=== PATIENT | male | born 1950 | race Caucasian/White ===

== ENCOUNTER → 2017-01-30 | Outpatient (CLI) | payer OTHER, MEDICARE ==
[2017-01-30 14:11] LABS: BLOOD UREA NITROGEN 13 mg/dl (7-18); BUN/CREATININE RATIO 14.8 (10-20); CARBON DIOXIDE 25 mmol/L (21-32); CHLORIDE 103 mmol/L (98-107); CREATININE 0.85 mg/dl (0.60-1.40); GLUCOSE 281 mg/dl (70-99); POTASSIUM 3.7 mmol/L (3.5-5.1); SODIUM 137 mmol/L (136-145)
[2017-01-30 14:13] LABS: CALCIUM 8.7 mg/dl (8.5-10.1)
[2017-01-30 14:15] LABS: ESTIMATED AVERAGE GLUCOSE 217 mg/dl; HA1C FLAG Normal (Normal)
[2017-01-30 14:16] LABS: FERRITIN 10.5 ng/ml (8.0-388.0); TOTAL IRON BINDING CAPACITY 465 mcg/dl (250-450)
--- NOTE | 2017-02-04 10:20 | CODING QUERY MEDICAL NECESSITY ---
SUPPORTING DIAGNOSIS NEEDED A supporting diagnosis is required for the test/procedure performed on this patient in order for us to be reimbursed by the patient's insurance. Please provide a supporting diagnosis for the following test/procedure listed below next to the test name along with your signature. *If there is no additional diagnosis for this patient that would support the following test/procedure please document that below next to the test/procedure. Test(s)/Procedure(s) that require a supporting diagnosis: DOS 01/30 * PSA DIAGNOSIS: Provider Signature: Date: Thank you Erin Sykes [facility] Information Management Once completed, please kindly fax back to [phone] For questions please call [phone]
== END | disposition home or self-care (01) ==
LOC: C.LABBC 09:50
PROVIDERS: ATTEND Family Medicine
DX: D64.9 Anemia, unspecified (principal); I10 Essential (primary) hypertension; R39.9 Unspecified symptoms and signs involving the genitourinary system; Z11.59 Encounter for screening for other viral diseases; E11.8 Type 2 diabetes mellitus with unspecified complications; Z12.5 Encounter for screening for malignant neoplasm of prostate

== ENCOUNTER 2018-12-06 02:16 | Inpatient (IN) ==
[2018-12-06] MEDS ORDERED: HYDROmorphone INJ 1 MG/ML SYRINGE IV PRN (03:38)
[2018-12-06] MEDS ORDERED: METOCLOPRAMIDE HCL INJ 5 MG/ML 2 ML VIAL IV STA (03:38)
[2018-12-06] MEDS ORDERED: SODIUM CHLORIDE 0.9% 500 ML IV SCH (03:45)
--- NOTE | 2018-12-06 05:04 | Emergency Department Note ---
History of Present Illness General Chief complaint: Illness Time Seen by Provider: 12/06/18 03:29 Source: patient, family, RN notes reviewed and old records reviewed Mode of arrival: ambulatory Limitations: no limitations History of Present Illness Onset (ago): hour(s) 6 Location: abdomen Radiation: back Pain Consistency: + constant Maximum Pain Intensity: 4 Quality: + aching Relieved By: + none Exacerbated By: + none Associated symptoms: + denies other symptoms Treatments prior to arrival: none This is a 68-year-old male who presents emergency department complaining of right upper quadrant abdominal pain that started earlier this evening. The patient reports he came down from [place] and began having pain. He reports similar stomach pain that started earlier in the week but it was not as severe as this. Patient has not taken anything for the pain. He is currently complaining of nausea. He still has his appendix and his gallbladder. He denies any fevers at home. He denies any chest pain. Home Medications Home Medications Medication Instructions Recorded Confirmed Type amlodipine 10 mg PO DAILY 12/06/18 12/06/18 History aspirin 81 mg PO DAILY 12/06/18 12/06/18 History cyanocobalamin (vitamin B-12) 1,000 mcg PO DAILY 12/06/18 12/06/18 History [Vitamin B-12] exenatide microspheres [Bydureon 2 mg SUBCUT WK 12/06/18 12/06/18 History BCise] glimepiride 2 mg PO BID 12/06/18 12/06/18 History hydrochlorothiazide 25 mg PO DAILY 12/06/18 12/06/18 History insulin detemir U-100 [Levemir 150 unit SUBCUT DAILY 12/06/18 12/06/18 History FlexTouch U-100 Insuln] losartan 100 mg PO DAILY 12/06/18 12/06/18 History metformin 1,000 mg PO Q12 12/06/18 12/06/18 History omeprazole magnesium [Prilosec OTC] 20 mg PO DAILY 12/06/18 12/06/18 History pravastatin 40 mg PO HS 12/06/18 12/06/18 History Allergies Allergy/AdvReac Type Severity Reaction Status Date / Time No Known Allergies Allergy Unverified 12/06/18 06:23 Past Med/Surg History Social History Feels Safe at Home: Yes Smoking Status: Never smoker Review of Systems A total of 10 systems reviewed and were otherwise negative Physical Exam Vital Signs Vital Signs - 24 hr 12/06/18 02:24 12/06/18 03:00 12/06/18 04:00 Temperature 36.8 C Temperature Source Oral Sepsis Recent Fever Within 48 Hours No Sepsis Action Taken by Nursing No Action Required Pulse Rate 123 H Pulse Rate [Apical] Pulse Rate [Right Finger] 113 H 101 H Pulse Rhythm Pulse Rhythm [Apical] Pulse Rhythm [Right Finger] Regular Regular Pulse Strength [Right Finger] Normal Normal Respiratory Rate 18 16 16 Respiratory Effort / Characteristics Non-Labored Spontaneous Non-Labored Non-Labored Respiratory Depth Normal Normal Normal Respiratory Pattern Regular Regular Blood Pressure 134/92 Blood Pressure [Left Arm] Blood Pressure Mean 106 Blood Pressure Mean [Left Arm] Blood Pressure Position [Left Arm] Pulse Oximetry 96 95 96 Oxygen Delivery Method Room Air Room Air Room Air 12/06/18 04:20 12/06/18 05:38 12/06/18 07:00 Temperature Temperature Source Sepsis Recent Fever Within 48 Hours Sepsis Action Taken by Nursing Pulse Rate 108 H Pulse Rate [Apical] Pulse Rate [Right Finger] 104 H 110 H Pulse Rhythm Regular Pulse Rhythm [Apical] Pulse Rhythm [Right Finger] Regular Regular Pulse Strength [Right Finger] Normal Respiratory Rate 16 12 19 Respiratory Effort / Characteristics Non-Labored Non-Labored Respiratory Depth Normal Normal Respiratory Pattern Regular Regular Blood Pressure Blood Pressure [Left Arm] 143/92 H 106/78 Blood Pressure Mean Blood Pressure Mean [Left Arm] 109 87 Blood Pressure Position [Left Arm] Lying Sitting Pulse Oximetry 94 99 91 Oxygen Delivery Method Room Air Room Air Room Air 12/06/18 07:42 Temperature Temperature Source Sepsis Recent Fever Within 48 Hours Sepsis Action Taken by Nursing Pulse Rate Pulse Rate [Apical] 111 H Pulse Rate [Right Finger] Pulse Rhythm Pulse Rhythm [Apical] Regular Pulse Rhythm [Right Finger] Pulse Strength [Right Finger] Respiratory Rate 19 Respiratory Effort / Characteristics Non-Labored Respiratory Depth Normal Respiratory Pattern Regular Blood Pressure Blood Pressure [Left Arm] 105/81 Blood Pressure Mean Blood Pressure Mean [Left Arm] 89 Blood Pressure Position [Left Arm] Sitting Pulse Oximetry 91 Oxygen Delivery Method Room Air GENERAL: Patient is a healthy-appearing well-nourished male uncomfortable in appearance HEAD: Normocephalic atraumatic EYES: Ocular movements intact pupils equal and react to light OROPHARYNX mucous membranes are moist no exudates present no erythema or edema present NECK: Supple no nuchal rigidity CHEST: Good equal expansion LUNGS: Clear and equal to auscultation CARDIAC: Normal S1 and S2 ABDOMEN: Soft, Tender RUQ + guarding BACK: No CVA tenderness EXTREMITIES: No pain upon palpation normal muscle strength in all groups no clubbing cyanosis or edema NEURO: Patient is following commands is answering questions appropriately. Alert and oriented x3 Cranial Nerves 2-12 grossly intact Course Administered Medications Hydromorphone HCl (Dilaudid) 1 mg IV Q15M PRN PRN Reason: Pain Stop: 12/20/18 03:37 Last Admin: 12/06/18 04:19 Dose: 1 mg Ioversol (Optiray 320 100ml) 94 ml IV ONCE PRN PRN Reason: Interaction Checking Stop: 12/10/18 05:21 Last Admin: 12/06/18 05:23 Dose: 94 ml Discontinued Medications Albuterol (Ventolin 0.083% 2.5mg/3ml) 2.5 mg NEB NOW STA Stop: 12/06/18 05:28 Last Admin: 12/06/18 05:33 Dose: 2.5 mg Sodium Chloride (Nss) 500 mls @ 999 mls/hr IV .Q31M CHIP Stop: 12/06/18 04:15 Last Infusion: 12/06/18 05:39 Dose: Admin: 12/06/18 04:22 Dose: 999 mls/hr Cefoxitin Sodium (Mefoxin) 2,000 mg in 60 mls @ 100 mls/hr IV NOW STA Stop: 12/06/18 06:19 Last Admin: 12/06/18 07:43 Dose: 100 mls/hr Metoclopramide HCl (Reglan) 10 mg IV NOW STA Stop: 12/06/18 03:39 Last Admin: 12/06/18 04:01 Dose: 10 mg Ondansetron HCl (Zofran) 4 mg IV NOW STA Stop: 12/06/18 05:28 Last Admin: 12/06/18 05:33 Dose: 4 mg Medical Decision Making Medical Records Attestation: I reviewed the patient's medical records. Home Medications Current Medication List: was personally reviewed by me Laboratory Data Attestation: I reviewed the patient's lab results. Result diagrams: 12/06/18 02:25 12/06/18 02:25 Lab Results 12/06/18 12/06/18 12/06/18 Range/Units 02:25 02:25 06:12 WBC 22.51 H (4.8-10.8) K/uL RBC 5.69 (4.7-6.1) M/uL Hgb 12.3 L (14.0-18.0) g/dL Hct 40.8 L (42-52) % MCV 71.7 L (80-100) fL MCH 21.6 L (25-34) pg MCHC 30.1 L (32-36) g/dL RDW Std Deviation 44.4 (36.4-46.3) fL RDW Coeff of [place] 17.1 H (11.5-14.5) % Plt Count 453 H (130-400) K/uL MPV 9.6 (7.4-10.4) fL Immature Gran % (Auto) 0.3 % Neut % (Auto) 88.1 % Lymph % (Auto) 4.6 % [place] % (Auto) 6.0 % Eos % (Auto) 0.9 % Baso % (Auto) 0.1 % Immature Gran # (Auto) 0.07 H (0.00-0.02) K/uL Neut # (Auto) 19.81 H (1.4-6.5) K/uL Lymph # (Auto) 1.04 L (1.2-3.4) K/uL [place] # (Auto) 1.36 H (0.11-0.59) K/uL Eos # (Auto) 0.21 (0-0.5) K/uL Baso # (Auto) 0.02 (0-0.2) K/uL RBC Morphology Unremarkable Sodium 135 L (136-145) mmol/L Potassium 3.8 (3.5-5.1) mmol/L Chloride 102 (98-107) mmol/L Carbon Dioxide 20 L (21-32) mmol/L Anion Gap 13.0 H (3-11) BUN 22 H (7-18) mg/dl Creatinine 1.41 H (0.6-1.4) mg/dl Est Cr Clr Drug Dosing 58.8 ml/min Est GFR ( Amer) 58.9 Est GFR (Non-Af Amer) 50.8 BUN/Creatinine Ratio 15.9 (10-20) Glucose 312 H (70-99) mg/dl Calcium 8.4 L (8.5-10.1) mg/dl Total Bilirubin 0.5 (0.2-1) mg/dl AST 37 (15-37) U/L ALT 68 (12-78) U/L Alkaline Phosphatase 101 (45-117) U/L Total Creatine Kinase 98 (39-308) U/L CK-MB (CK-2) 1.6 (0.5-3.6) ng/ml CK/CKMB % Calc 1.6 (0-3.0) Troponin I < 0.015 (0-0.045) ng/ml Total Protein 8.0 (6.4-8.2) gm/dl Albumin 3.5 (3.4-5.0) gm/dl Globulin 4.5 H (2.5-4.0) gm/dl Albumin/Globulin Ratio 0.8 L (0.9-2) Lipase 207 (73-393) U/L Beta-Hydroxybutyric Acd 3.92 H (0.2-2.81) mg/dl Urine Color Yellow Urine Appearance Clear (Clear) Urine pH 5.0 (4.5-7.5) Ur Specific [place] 1.033 H (1.000-1.030) Urine Protein 1+ H (Negative) Urine Glucose (UA) 3+ H (Negative) Urine Ketones Trace H (Negative) Urine Blood Negative (Negative) Urine Nitrite Negative (Negative) Urine Bilirubin Negative (Negative) Urine Urobilinogen Negative (Negative) Ur Leukocyte Esterase Negative (Negative) Urine WBC (Auto) 1-5 (0-5) /hpf Urine RBC (Auto) 0-4 (0-4) /hpf U Hyaline Cast (Auto) 5-10 H (0-5) /lpf U Epithel Cells (Auto) 10-20 H (0-5) /lpf Urine Bacteria (Auto) Negative (Negative) WBC Casts 1-5 H (0) /lpf Urine Mucus Present H (None Prsent) Imaging Data Attestation: I personally reviewed and interpreted this imaging study as follows : My Impression: 1 view of the chest was interpreted by me shows no evidence of pneumonia congestion or pneumothorax. Radiologist's Impression: US abdomen limited CLINICAL HISTORY: 68 years-old Male presenting with Pt c/o RUQ abd pain. TECHNIQUE: Real-time grayscale and limited color Doppler ultrasound imaging of the abdomen limited to the right upper quadrant was performed. COMPARISON: CT from earlier today. FINDINGS: Pancreas: Largely obscured due to overlying bowel gas. Liver: Markedly hyperechogenic parenchyma with obscuration of the right hemidiaphragm, likely indicating marked hepatic steatosis. The liver measures 22.3 cm in maximal sagittal dimension. No sonographic evidence of hepatic mass. Main portal vein patent with normal directional flow. Biliary: No intrahepatic biliary ductal dilatation. Common bile duct measures up to 5 mm in diameter. Gallbladder: Gallbladder sludge. Few gallstones may also be present. No evidence of gallbladder wall thickening, gallbladder distention, or pericholecystic fluid or inflammatory change. Sonographic Gordon's sign negative. Right kidney: Normal in appearance without evidence of hydronephrosis. Ascites: None. Other: None. IMPRESSION: 1. Severe hepatic steatosis and hepatomegaly. Correlate with liver function tests to exclude steatohepatitis as a cause for abdominal pain. 2. Cholelithiasis and gallbladder sludge without evidence of cholecystitis. Electronically signed by: Kashif Pak M.D. 12/06/2018 6:56 AM Dictated: 12/06/18653 Transcribed: 12/06/18653 CT abdomen pelvis with contrast: Impression: Exam is degraded by patient motion. Hiatal hernia with the breeze in the esophagus as well as mild soft GL wall thickening likely representing gastroesophageal reflux with esophagitis. 13 mm nodular opacity in the left lower lobe. Recommend correlation with prior thoracic imaging if available. Alternatively: Nonemergent chest CT should be performed. Hepatic steatosis. Subtle hyperdensity in the gallbladder may represent sludge or stones. Subcentimeter hypodensities in the kidneys are too small to characterize. Left renal cyst measuring 10.9 x 9.8 cm. Enlarged prostate gland. No evidence of small bowel obstruction or acute appendicitis. ECG Data Attestation: I personally reviewed and interpreted this ECG as follows: Indication: abdominal pain Rate (beats per minute): 109 Rhythm: sinus tachycardia Findings: no ST depression and no ST elevation Comparison ECG Date: no prior available Blood Pressure Blood Pressure Disposition: elevated BP felt to be situational MDM Narrative This is a 68-year-old male who presents emergency department complaining of right upper quadrant abdominal pain. Due to the nature of the patient's pain he was sent for a CAT scan of the abdomen and pelvis. The patient was found to have grossly elevated white blood cell count of 22,000. His EKG does not show any evidence of ischemia. The patient was given Dilaudid as well as Reglan and a normal saline bolus here in the emergency department. Repeat examination revealed improvement in the patient's symptoms. The patient was sent for an ultrasound of his abdomen as a CAT scan does not show any evidence of acute cholecystitis. I suspect that the patient was suffering from cholecystitis with sludge and stone present. He does have a large elevation in his white blood cell count. Based on all these findings I will discuss the case with the hospital service. Impression & Plan Abdominal pain, Hypoxia Discharge Plan Visit Data Chief Complaint: Illness ED Provider: Rush Ng Discharge Problem: Abdominal pain, Hypoxia Forms Stand Alone Forms: [facility] Prescriptions Prescriptions: No Action pravastatin 40 mg tablet 40 mg PO HS RF: 0 aspirin 81 mg Tablet,Delayed Release (Dr/Ec) 81 mg PO DAILY RF: 0 glimepiride 2 mg tablet 2 mg PO BID RF: 0 amlodipine 10 mg tablet 10 mg PO DAILY RF: 0 metformin 1,000 mg tablet 1,000 mg PO Q12 RF: 0 hydrochlorothiazide 25 mg tablet 25 mg PO DAILY RF: 0 losartan 100 mg tablet 100 mg PO DAILY RF: 0 insulin detemir U-100 [Levemir FlexTouch U-100 Insuln] 100 unit/mL (3 mL) insulin pen 150 unit subcut DAILY RF: 0 exenatide microspheres [Bydureon BCise] 2 mg/0.85 mL auto-injector 2 mg subcut WK RF: 0 cyanocobalamin (vitamin B-12) [Vitamin B-12] 1,000 mcg Tablet 1,000 mcg PO DAILY RF: 0 omeprazole magnesium [Prilosec OTC] 20 mg Tablet,Delayed Release (Dr/Ec) 20 mg PO DAILY RF: 0
[2018-12-06] MEDS ORDERED: IOVERSOL 100ml IV PRN (05:22)
[2018-12-06] MEDS ORDERED: ALBUTEROL 0.083% NEBU SOLN 3 ML VIAL NEB STA ×2 (05:27→07:43)
[2018-12-06] MEDS ORDERED: ONDANSETRON INJ 2 MG/ML 2 ML VIAL IV STA (05:27)
[2018-12-06] MEDS ORDERED: cefOXitin 2,000 MG/60 ML BAG IV STA (05:44)
--- NOTE | 2018-12-06 06:57 | Ultrasound Report ---
US abdomen limited CLINICAL HISTORY: 68 years-old Male presenting with Pt c/o RUQ abd pain. TECHNIQUE: Real-time grayscale and limited color Doppler ultrasound imaging of the abdomen limited to the right upper quadrant was performed. COMPARISON: CT from earlier today. FINDINGS: Pancreas: Largely obscured due to overlying bowel gas. Liver: Markedly hyperechogenic parenchyma with obscuration of the right hemidiaphragm, likely indicat ing marked hepatic steatosis. The liver measures 22.3 cm in maximal sagittal dimension. No sonographi c evidence of hepatic mass. Main portal vein patent with normal directional flow. Biliary: No intrahepatic biliary ductal dilatation. Common bile duct measures up to 5 mm in diameter. Gallbladder: Gallbladder sludge. Few gallstones may also be present. No evidence of gallbladder wall thickening, gallbladder distention, or pericholecystic fluid or inflammatory change. Sonographic Murp hy's sign negative. Right kidney: Normal in appearance without evidence of hydronephrosis. Ascites: None. Other: None. IMPRESSION: 1. Severe hepatic steatosis and hepatomegaly. Correlate with liver function tests to exclude steatoh epatitis as a cause for abdominal pain. 2. Cholelithiasis and gallbladder sludge without evidence of cholecystitis. Electronically signed by: Kashif Pak M.D. 12/06/2018 6:56 AM
[2018-12-06] MEDS ORDERED: LEVOFLOXACIN/D5W 750 MG/150 ML BAG IV STA (07:43)
--- NOTE | 2018-12-06 07:47 | History & Physical Report ---
Date of Service December 06, 2018 Assessment & Plan (1) Nausea & vomiting: Patient had Reiger's at home with a concomitant nausea vomiting and diarrhea. He may have a viral gastroenteritis. Emergency room physician was concerned about cholecystitis however ultrasound and is without suggestion of it and LFTs are normal. He is covered prophylactically with antibiotics because he had a aspiration episode in the CAT scanner. We will follow him clinically with including blood cultures and if diarrhea persists we will employ screening for bacterial colitis (2) Diabetes: Diabetes is significantly out of control. We will hold his multiple home medications including exenatide glimepiride metformin and insulin you put him on an insulin drip right now and hydrate him with normal saline (3) Hypertension: Patient typically takes amlodipine losartan and hydrochlorothiazide for blood pressure control will maintain the amlodipine and losartan but hold the hydrochlorothiazide in the face that we are hydrating the patient right now (4) GERD (gastroesophageal reflux disease): Patient will continue his omeprazole (5) DVT prophylaxis: Heparin will be used for DVT prevention History of Present Illness Primary Care Provider: Allie Rosales MD Patient presents to the ER after having Rigor's at home he then had some vomiting in the CAT scanner with some transient hypoxia which is not recorded in the chart suffers from Parker in the past history and is a diabetic his diabetes has been difficult to control at home of late. Patient did have some diarrhea at home along with the nausea and vomiting. In the emergency department he is leukocytosis he is an ultrasound of his gallbladder showing sludge but no evidence of acute cholecystitis pending CT scan of his abdomen pelvis and a chest x-ray without infiltrate. He has high glucose and a high abnormal beta hydroxybutyric acid normal LFTs normal renal function Allergies Allergy/AdvReac Type Severity Reaction Status Date / Time No Known Allergies Allergy Unverified 12/06/18 06:23 Home Medications Home Medications Medication Instructions Recorded Confirmed Type amlodipine 10 mg PO DAILY 12/06/18 12/06/18 History aspirin 81 mg PO DAILY 12/06/18 12/06/18 History cyanocobalamin (vitamin B-12) 1,000 mcg PO DAILY 12/06/18 12/06/18 History [Vitamin B-12] exenatide microspheres [Bydureon 2 mg SUBCUT WK 12/06/18 12/06/18 History BCise] glimepiride 2 mg PO BID 12/06/18 12/06/18 History hydrochlorothiazide 25 mg PO DAILY 12/06/18 12/06/18 History insulin detemir U-100 [Levemir 150 unit SUBCUT DAILY 12/06/18 12/06/18 History FlexTouch U-100 Insuln] losartan 100 mg PO DAILY 12/06/18 12/06/18 History metformin 1,000 mg PO Q12 12/06/18 12/06/18 History omeprazole magnesium [Prilosec OTC] 20 mg PO DAILY 12/06/18 12/06/18 History pravastatin 40 mg PO HS 12/06/18 12/06/18 History Past Med/Surg History Medical History Amebic hepatitis Diabetes Dyslipidemia GERD (gastroesophageal reflux disease) Hypertension Obesity Family History Unknown Diabetes Social History Feels Safe at Home: Yes Smoking Status: Never smoker Review of Systems ROS: Patient was in significant distress at home is much improved now No double vision blurry vision No problems with speech or swallowing No palpitations, chest pain or pressure No Wheezing or breathing issues Diffuse abdominal pain with nausea vomiting and diarrhea changes No burning urine urine frequency or changes in color No focal joint pain or muscle pain No skin rashes or oral lesions No unusual bruising or bleeding No focused back pain or numbness or loss of strength No changes in memory or confusion Physical Exam 2 Vital Signs (Past 24 Hours): Last Vital Signs Temp 36.8 C 12/06/18 02:24 Pulse 111 H 12/06/18 07:42 Resp 19 12/06/18 07:42 BP 105/81 12/06/18 07:42 91 12/06/18 07:42 the patient appeared well nourished and normally developed he is morbidly obese. Vital signs as documented. Head exam is unremarkable. normocephalic, atraumatic Neck is without jugular venous distension, thyromegaly, or lymphademopathy Lungs are clear to auscultation and percussion. Cardiac exam reveals Rhythm is regular. First and second heart sounds normal. Abdominal exam reveals nontender ventral abdominal hernia, generally soft and nontender to exam normal bowel sounds, no masses, no organomegaly Extremities are nonedematous and both pedal pulses are present Neurologic exam is A&Ox3, no focal deficits, strength is equal bilateral Psychologically seems neither anxious or depressed Skin is warm Dry without bruises or lesions Pplse Ox Results & Data Diagnostic Findings liver us IMPRESSION: 1. Severe hepatic steatosis and hepatomegaly. Correlate with liver function tests to exclude steatohepatitis as a cause for abdominal pain. 2. Cholelithiasis and gallbladder sludge without evidence of cholecystitis.
--- NOTE | 2018-12-06 08:17 | CT Scan Report ---
ADDENDUM Summary of Fleischner Society 2017 Recommendations (H Alida et al. Guidelines for management of i ncidental pulmonary nodules detected on CT images: From the Fleischner Society 2017. Radiology 2017; 284: 228-243.) SOLID NODULES Single nodule; size < 6 mm * Low risk patients: No routine follow-up * High risk patients: Optional CT at 12 months Single nodule; size 6-8 mm * Low risk patients: CT at 6-12 months, then consider CT at 18-24 months * High risk patients: CT at 6-12 months, then at 18-24 months Single nodule; size > 8 mm * Either low or high risk patients: Considered CT at 3 months, PET/CT, or tissue sampling Multiple nodules; size < 6 mm * Low risk patients: No routine follow up * High risk patients: Optional CT at 12 months Multiple nodules; size 6-8 mm * Low risk patients: CT at 3-6 months, then consider CT at 18-24 months * High risk patients: CT at 3-6 months, then at 18-24 months Multiple nodules; size > 8 mm * Low risk patients: CT at 3-6 months, then consider at 18-24 months * High risk patients: CT at 3-6 months, then at 18-24 months SUBSOLID NODULES Single ground-glass nodule * Nodule size < 6 mm: No routine follow-up * Nodule size > or = 6 mm: CT at 6-12 months to confirm persistence, then CT every 2 years until 5 y ears Single part-solid nodule * Nodule size < 6 mm: No routine follow-up * Nodules size > or = 6 mm: CT at 3-6 months to confirm persistence. If unchanged and solid componen t remains < 6 mm, annual CT should be performed for 5 years Multiple nodules * Nodule size < 6 mm: CT at 3-6 months. If stable, consider CT at 2 and 4 years. * Nodules size > or = 6 mm: CT at 3-6 months. Subsequent management based on the most suspicious nod ule(s) NOTE: 1) These guidelines apply to incidental nodules. These guidelines do NOT apply to patients younger th an 35 years, immunocompromised patients, or patients with cancer. 2) Risk categories: * Low risk patients: Minimal or absent history of smoking and/or other known risk factors * High risk patients: History of smoking, exposure to other carcinogens, emphysema, fibrosis, upper lobe location, family history of lung cancer, etc. 3) If a nodule up to 8 mm is partly solid or is ground glass, further follow-up is required after 24 months to exclude possible slow growing adenocarcinoma. Electronically signed by: Kashif Pak M.D. 12/06/2018 8:[address] abd pelvis IV con only CLINICAL HISTORY: 68 years-old Male presenting with Pt c/o RUQ abd pain. TECHNIQUE: Multidetector CT of the abdomen and pelvis was performed after the administration of intra venous contrast. IV contrast: 94 mL of Optiray 320. One or more dose lowering techniques were used co nsistent with the principles of ALARA (as low as reasonably achievable), including automatic exposure control, mA or kV adjustment to individual patient size, and/or use of iterative reconstruction. COMPARISON: None. CT DOSE (mGy.cm): The estimated cumulative dose is 1824.26 mGy.cm. FINDINGS: German Tutor topogram: Unremarkable. Motion artifact mildly degrades image quality. This slightly negatively affects diagnostic accuracy t he exam. Lung bases: Normal heart size. Coronary artery calcification. No pericardial or pleural effusion. Res piratory motion artifact degrades violation of the lung bases. Solid peripheral 13 mm nodule in the p osterior basal left lower lobe (series 3 image 90). Liver: Normal morphology. Density suggestive of hepatic steatosis. Well-defined hypodensity in the he patic dome likely hepatic cyst or hamartoma. Additional more vague hypodensity side more inferiorly ( series 3 image 101), indeterminate though possibly hemangioma or peribiliary cystic change. Patent he patic vasculature. Biliary: No intrahepatic or extrahepatic biliary ductal dilatation. Gallbladder contains gallstones o r sludge. Pancreas: Mild parenchymal atrophy. Spleen: Normal. Adrenal glands: Normal. Kidneys and ureters: Multiple small right renal cysts. Dominant exophytic left renal cyst measuring o cindy 13 cm in diameter with a thin septation and thin septal calcification (Bosniak 2). Smaller simila r-appearing cyst measuring approximate 10 cm at the lower pole the left kidney (sees Bosniak 2). No n ephrolithiasis or hydronephrosis. Ureters nondistended. Bladder: Normal. Pelvic organs: Prostate enlargement likely secondary to benign prostatic hyperplasia. Bowel: The appendix is mildly dilated measuring 7-8 mm though measurement is negatively affected by m otion artifact. The appendix is otherwise grossly normal with no periappendiceal fat infiltration. Ga s is noted at the appendiceal tip. No bowel obstruction. Small hiatal hernia. The distal esophagus is dilated with gas and debris. Mild circumferential wall thickening. Peritoneal cavity: No free fluid or intraperitoneal gas. Lymph nodes: No enlarged lymph nodes in the abdomen or pelvis. Vasculature: Atherosclerosis of the normal caliber abdominal aorta. IVC patent. Abdominal wall: Fat-containing bilateral inguinal hernias. Diastases of the abdominis rectus. Infiltr ation of the subcutaneous tissue in the anterior abdominal wall likely from of medication injections. Musculoskeletal: Degenerative changes of the spine. IMPRESSION: 1. Motion artifact degrades evaluation attending image quality negatively affecting diagnostic accur acy of the exam. 2. Gallbladder sludge or gallstones. No evidence of cholecystitis. 3. No convincing evidence of appendicitis. 4. Hiatal hernia with mild circumferential esophageal wall thickening and a dilated esophagus contai brien gas and debris. This may suggest reflux and esophagitis. 5. Hepatic steatosis. Correlate with liver function tests to exclude steatohepatitis as a cause for abdominal pain. 6. 13 mm solid left lower lobe pulmonary nodule. Follow-up per Fleischner Society 2017 recommendatio ns below. Electronically signed by: Kashif Pak M.D. 12/06/2018 8:16 AM
[2018-12-06] MEDS ORDERED: HEPARIN SOD (PORCINE) 1000 UNIT/ML 10 ML VIAL ONE (08:56)
[2018-12-06] MEDS ORDERED: ONDANSETRON INJ 2 MG/ML 2 ML VIAL IV PRN (09:51)
[2018-12-06] MEDS ORDERED: MODERATE STRESS LEVEL ONE (09:51)
[2018-12-06] MEDS ORDERED: DKA GOAL RANGE 150-250 mg/dl ONE (09:51)
[2018-12-06] MEDS ORDERED: DC ALL PREVIOUSLY ORDERED DIABETES MEDS ONE (09:51)
[2018-12-06] MEDS ORDERED: ACETAMINOPHEN 325 MG TAB PO PRN (09:51)
[2018-12-06] MEDS ORDERED: PIPERACILL/TAZOBAC CONSULT ACTIVE PRN (09:51)
[2018-12-06] MEDS ORDERED: MoRPHine SULFATE 4 MG/ML 1 ML CARP\\VIAL IV PRN (09:51)
--- NOTE | 2018-12-06 10:58 | XRay Report ---
XR chest 1V portable CLINICAL HISTORY: 68 years-old Male presenting with Chest Pain. TECHNIQUE: Portable upright AP view of the chest was obtained. COMPARISON: None. FINDINGS: Cardiac silhouette mildly enlarged. Elevation of the right hemidiaphragm. No focal opacity. No large effusion or pneumothorax. Degenerative changes of the thoracic spine. Upper abdomen normal. IMPRESSION: 1. Borderline cardiomegaly. Otherwise no acute pulmonary disease. Electronically signed by: Kashif aPk M.D. 12/06/2018 10:56 AM
[2018-12-06] MEDS ORDERED: INSULIN HUMAN REGULAR IV BOLUS 3 UNITS in SYRINGE 0 ML IV ONE (11:00)
[2018-12-06] MEDS ORDERED: INSULIN REGULAR 250 UNITS in SODIUM CHLORIDE 0.9% 247.5 ML IV SCH (11:00)
[2018-12-06] MEDS: ASPIRIN 81 MG ECTAB PO SCH (11:22)
[2018-12-06] MEDS: LOSARTAN POTASSIUM 50 MG TAB PO SCH (11:22)
[2018-12-06] MEDS: SODIUM CHLORIDE 0.9% 1000ML 1,000 ML IV SCH ×2 (11:23→21:01)
[2018-12-06] MEDS: AMLODIPINE BESYLATE 5 MG TAB PO SCH (11:23)
[2018-12-06] MEDS: HEPARIN SOD 5,000 UNIT/0.5 ML VIAL SQ SCH ×2 (11:24→21:02)
[2018-12-06] MEDS ORDERED: PIPERACILLIN/TAZOBACTAM 4.5 GM/120 ML BAG IV ONE (12:00)
[2018-12-06] MEDS: INSULIN ASPART 100 UNITS/ML 3 ML PEN SC SCH ×3 (12:17→22:57)
[2018-12-06] MEDS: PANTOprazole 40 MG TAB PO SCH (12:17)
[2018-12-06] MEDS ORDERED: INFLUENZA VACCINE HIGH DOSE 65+ 0.5 ML SYR IM ONE (14:45)
[2018-12-06] MEDS ORDERED: INFLUENZA ADMINISTRATION CHARGE ONE (14:45)
[2018-12-06] MEDS: PIPERACILLIN/TAZOBACTAM 4.5 GM in DEXTROSE 5% 100 ML IV SCH (17:55)
[2018-12-06] MEDS ORDERED: PHARMACY GLYCEMIC MGMT CONSULT PRN (18:38)
[2018-12-06] MEDS ORDERED: INSULIN DETEMIR FLEXPEN/FLEX TOUCH 100 UNITS/ML 3ML SC STA (21:17)
[2018-12-07] MEDS: PIPERACILLIN/TAZOBACTAM 4.5 GM in DEXTROSE 5% 100 ML IV SCH ×2 (01:13→09:18)
[2018-12-07] MEDS ORDERED: GLUCOSE 40% GEL 15 GM TUBE PO PRN (03:10)
[2018-12-07] MEDS ORDERED: DEXTROSE 50% 50 ML SYRINGE IV PRN (03:10)
[2018-12-07] MEDS ORDERED: GLUCAGON FOR INJ 1 MG VIAL SQ PRN (03:10)
[2018-12-07] MEDS ORDERED: CARBOHYDRATES FOR HYPOGLYCEMIA PO PRN (03:10)
[2018-12-07] MEDS ORDERED: GLUCOSE 10 TABS/TUBE PO PRN (03:10)
[2018-12-07] MEDS: SODIUM CHLORIDE 0.9% 1000ML 1,000 ML IV SCH (06:16)
[2018-12-07] MEDS: PANTOprazole 40 MG TAB PO SCH (07:59)
[2018-12-07] MEDS: ASPIRIN 81 MG ECTAB PO SCH (07:59)
[2018-12-07] MEDS: AMLODIPINE BESYLATE 5 MG TAB PO SCH (07:59)
[2018-12-07] MEDS: HEPARIN SOD 5,000 UNIT/0.5 ML VIAL SQ SCH (07:59)
[2018-12-07] MEDS: LOSARTAN POTASSIUM 50 MG TAB PO SCH (07:59)
[2018-12-07] MEDS: INSULIN ASPART 100 UNITS/ML 3 ML PEN SC SCH ×2 (08:00→12:03)
[2018-12-07] MEDS ORDERED: INSULIN DETEMIR FLEXPEN/FLEX TOUCH 100 UNITS/ML 3ML SC SCH ×2 (09:00→21:00)
--- NOTE | 2018-12-07 11:23 | Pharmacy Report ---
Pharmacy Glycemic Short Note 2 - Date of Service December 07, 2018 - Glycemic Short BSG Results (Last 24 hours): 12/06/18 12/06/18 12/06/18 12:32 13:29 14:35 Glucose POC Glucose 322 H 301 H 252 H 12/06/18 12/06/18 12/06/18 16:29 18:24 19:30 Glucose POC Glucose 179 H 148 H 132 H 12/06/18 12/06/18 12/06/18 20:55 22:09 22:50 Glucose POC Glucose 132 H 144 H 137 H 12/06/18 12/07/18 12/07/18 23:59 01:04 02:00 Glucose POC Glucose 130 H 130 H 125 H 12/07/18 12/07/18 12/07/18 03:05 06:57 07:27 Glucose 113 H POC Glucose 120 H 127 H 12/07/18 11:08 Glucose POC Glucose 126 H OUTPATIENT ANTIDIABETIC REGIMEN: * Lantus 150 units SQ dialy * metformin 1000 mg PO BID * glimepiride 2 mg PO BIDM * Bydureon 2 mg Sq weekly ASSESSMENT: * 68 yr old male admitted with nausea, vomiting, and severe hyperglycemia * Pt is poorly controlled on large dose of Lantus + orals + injectable GLP1 * He was started on an IV insulin infusion which was overlapped with basal insulin. The infusion was discontinued overnight. * I will base inpatient insulin doses on combination of home dose (150 units = basal 40 units BID, Novolog CF/CR 07/16) and weight/stress 3. PLAN FOR INPATIENT GLYCEMIC CONTROL: * Hold outpatient oral diabetes medications * Basal insulin * Lantus 40 units SQ this am, then per scale BID * 40 units for BSG < 160 mg/dL * 50 units for BSG 160 mg/dL or more * Bolus insulin - tighten * NovoLog per scale ACHS or Q6hrs while NPO * Goal Range: Low 120 mg/dL - High 160 mg/dL * Correction Factor: 15 mg/dL/unit * Nutritional / Prandial insulin per carb ratio of 1 unit per 5 grams CHO consumed Thank you
--- NOTE | 2018-12-10 21:40 | Discharge Summary ---
Date of Service December 08, 2018 Admission HPI Per Admitting Provider Patient presents to the ER after having Rigor's at home he then had some vomiting in the CAT scanner with some transient hypoxia which is not recorded in the chart suffers from Parker in the past history and is a diabetic his diabetes has been difficult to control at home of late. Patient did have some diarrhea at home along with the nausea and vomiting. In the emergency department he is leukocytosis he is an ultrasound of his gallbladder showing sludge but no evidence of acute cholecystitis pending CT scan of his abdomen pelvis and a chest x-ray without infiltrate. He has high glucose and a high abnormal beta hydroxybutyric acid normal LFTs normal renal function Admission Exam Per Admitting Provider the patient appeared well nourished and normally developed he is morbidly obese. Vital signs as documented. Head exam is unremarkable. normocephalic, atraumatic Neck is without jugular venous distension, thyromegaly, or lymphademopathy Lungs are clear to auscultation and percussion. Cardiac exam reveals Rhythm is regular. First and second heart sounds normal. Abdominal exam reveals nontender ventral abdominal hernia, generally soft and nontender to exam normal bowel sounds, no masses, no organomegaly Extremities are nonedematous and both pedal pulses are present Neurologic exam is A&Ox3, no focal deficits, strength is equal bilateral Psychologically seems neither anxious or depressed Skin is warm Dry without bruises or lesions Pplse Ox Principal Diagnosis Symptomatic gall stones Discharge Exam Constitutional WD/WN, vitals as above Eyes PERRL, conjunctivae normal, anicteric sclerae ENMT external ear and nose normal, oropharynx normal Neck trachea midline, no thyromegaly Respiratory normal respiratory effort, lungs clear to auscultation Cardiovascular RRR, no murmur, no edema Gastrointestinal (Abdomen) normal bowel sounds, soft, nontender, no hepatosplenomegaly Musculoskeletal no cyanosis or clubbing, extremities motor strength 5/5 Skin no rashes, warm and dry Neurologic patellar DTR's 2+ bilat, sensation intact and PERRL, EOMI, accommodation nl, no face palsy, no dysarthria Psychiatric A+Ox3, euthymic affect Lymphatic no cervical or axillary lymphadenopathy Discharge Data Allergies Allergy/AdvReac Type Severity Reaction Status Date / Time No Known Allergies Allergy Unverified 12/06/18 06:23 Consultations 12/06/18 07:43 ED Decision to Admit Stat Ordered Studies 12/06/18 03:38 CT abd pelvis IV con only Urgent 12/06/18 05:44 US abdomen limited Stat Hospital Course (1) Nausea & vomiting: likely symptomatic gall stones evidence of stones and sludge on US as well as CT scan no evidence of cholecystitis, LFT normal, WBC normal no pain on exam he admits to having pain after eating for several weeks, not every meal he says he only gets the pain after eating cannot recall if it is with fatty or greasy foods specifically patient felt fine on the days of discharge, no pain, no vomiting recommend follow up with general surgeon to discuss gall stones and symptoms appointment with Dr. Francisco on 12/17 (2) Aspiration into respiratory tract: occurred while in CT, had coughing, dyspnea, transient hypoxia/desaturations will cover with 5 day course of antibiotics no fever, breathing well on discharge (3) Diabetes: Diabetes is significantly out of control initially treated with insulin infusion for glucose > 500 responded quickly discussed with pharmacy as well as family living educator plan is below, discussed with patient and his family, they agree: - change Levemir to BID from once daily, 40 units if sugar < 160 and 50 units if > 160 will use Humalog sliding scale, correction factor of 15, starting above 160, and a carb ratio of 1 to 5 patient will keep close record of his sugars the next week will stop Bydureon and Glimepiride follow up with PCP to discuss glucose control (4) Hypertension: stable on home medications (5) GERD (gastroesophageal reflux disease): Patient will continue his omeprazole (6) DVT prophylaxis: Heparin will be used for DVT prevention Total Time Total Time Spent Total Time Spent (In Minutes): 45 minutes Total Time Includes: Examination of the Patient, Discharge Planning, Medication Reconciliation (discussed diabetes plan in great detail with patient and his family) and Communication With Other Providers Discharge Plan Discharge Items Patient Disposition: Home - Self-Care Reason For Visit: abd pain Discharge Diagnosis: Vomiting, aspiration event, uncontrolled diabetes Condition: Good Discharge Goals: Improve disease control and Improve function Activity: Resume your previous activity Lifting: None Bathing: No limitations Sexual Activity: When tolerated Exercise/Sports: None Driving/Machine Use: No limitations Non-emergency contact: Primary Care Provider and Specialist Call non-emergency contact if: you have any medication questions, your symptoms worsen, your pain is not controlled and you have a fever Follow-up/Referrals: Jaxon Francicso MD, FACS [Surgeon] - 12/17/18 9:00 am (Please, follow up at [facility] General Surgery Office with Dr. Jaxon Francisco on December 17 at 9:20 am (arrive 9:00 am). *This office is located at [address] [place] [address] in [place]. If you need to change or cancel this appointment, call the office at [phone].) Allie Rosales MD [Primary Care Provider] - 12/11/18 10:00 am (Please, follow up at [facility] Office with Dr. Rosales on FridayDecember 11 at 10:00 am. *If you need to change this appointment, call the office at [phone].) Diet: Carb Consistent or DM2 and Low Fat Addtl Provider Instructions: Medications: - AUGMENTIN: 1 tablet twice a day for 7 more doses - LEVEMIR: dose changed to 40-50 units twice a day - NOVOLOG: meal time dosing, see below - Bydureon and Glimepiride stopped Nausea, vomiting, abdominal pain no acute findings on CT of the abdomen/pelvis some gall stones and sludge but no infection ultrasound showed the stones and sludge but again, no infection or inflammation likely that you have symptomatic gall stones given you history of pain after eating recommend follow up with general surgery avoid fatty, greasy foods as this will aggravate gall bladder Hyperglycemia regimen changed Levemir is 40 units if sugar < 160 and 50 units if > 160, morning and evening Novolog sliding scale: give one unit for every 5gm of carbs goal is 120-160 160-175 = 1 unit 176-190 = 2 units 191-205 = 3 units 206-220 = 4 units 221-235 = 5 units 236-250 = 6 units 251-265 = 7 units 266-280 = 8 units 281-295 = 9 units 296-305 = 10 units hold Metformin today and tomorrow, resume on Friday Aspiration with vomiting complete a course of prophylactic antibiotics, Augmentin for 7 more doses Pulmonary nodule: 13mm in the left lower lobe, incidental finding per criteria, recommend repeat CT of the chest in 3 months will send this in discharge summary and Dr. Rosales can arrange in February FOLLOW UP - Dr. Rosales as scheduled - Dr. Francisco on 12/17 with [facility] general surgery Prescriptions: New insulin detemir U-100 [Levemir FlexTouch U-100 Insuln] 100 unit/mL (3 mL) Insulin Pen 40 units subcut BID 30 Days Qty: 24 RF: 3 insulin aspart U-100 [Novolog Flexpen U-100 Insulin] 100 unit/mL Insulin Pen See Rx Instructions .ROUTE .COMPLEX Qty: 15 RF: 0 amoxicillin-pot clavulanate [Augmentin] 875-125 mg tablet 1 tab PO Q12H Qty: 7 RF: 0 Continued pravastatin 40 mg tablet 40 mg PO HS RF: 0 aspirin 81 mg Tablet,Delayed Release (Dr/Ec) 81 mg PO DAILY RF: 0 amlodipine 10 mg tablet 10 mg PO DAILY RF: 0 metformin 1,000 mg tablet 1,000 mg PO Q12 RF: 0 hydrochlorothiazide 25 mg tablet 25 mg PO DAILY RF: 0 losartan 100 mg tablet 100 mg PO DAILY RF: 0 cyanocobalamin (vitamin B-12) [Vitamin B-12] 1,000 mcg Tablet 1,000 mcg PO DAILY RF: 0 omeprazole magnesium [Prilosec OTC] 20 mg Tablet,Delayed Release (Dr/Ec) 20 mg PO DAILY RF: 0 Discontinued glimepiride 2 mg tablet 2 mg PO BID RF: 0 insulin detemir U-100 [Levemir FlexTouch U-100 Insuln] 100 unit/mL (3 mL) insulin pen 150 unit subcut DAILY RF: 0 exenatide microspheres [Bydureon BCise] 2 mg/0.85 mL auto-injector 2 mg subcut WK RF: 0 Stand-Alone Forms: [employer] [facility] [employer] [facility]/Other Patient Handouts: Amoxicillin Trihydrate Oral tablet Discharge Orders: Discharge Order (Routine); Ordered 12/07/18 Ordered By: Nabil De La Cruz Admission Data Admit Date/Time: 12/06/18 07:56 Attending Provider: Nabil De La Cruz Admit Provider: Jono Clemente Primary Care Provider: Allie Rosales Other Providers: Jono Clemente Service: Telemetry Other Interventions: Discharge Summary Assessment (RN) Last Done: 12/07/18 16:27 DC Date/Time DO NOT enter until pt leaves facility: 12/07/18 16:56
--- NOTE | 2018-12-11 12:27 | Coding Query ---
CODING QUERY To promote full compliance with coding requirements relating to patient care, provider participation is requested in all cases of statistical developer uncertainty. Please assist us with the question(s) below: Coding Question(s): There is documentation of Aspiration event and Aspiration into respiratory tract that occurred while in CT and there is treatment with a course of antibiotics. Please clarify below, in your clinical opinion, regarding aspiration. ( x) Possible Aspiration Pneumonia ( ) Aspiration of vomit into respiratory tract with NO possible aspiration pneumonia Physician's Response(s): Thank you Umm Sood Principal Diagnosis: "�that condition established after study, to be chiefly responsible for occasioning the admission of the patient to the hospital for care." Co-Existing Principal Diagnosis: "�when two or more diagnoses equally meet the criteria for principal diagnosis as determined by the circumstances of admission, diagnostic work up, and/or therapy provided, and the Alphabetic Index, Tabular List, or another coding guideline does not provide sequencing direction, any one of the diagnoses may be sequenced first." "When the physician has documented what appears to be a current diagnosis in the body of the record, but has not included the diagnosis in the final diagnostic statement, the physician should be asked whether the diagnosis should be added." (Source Coding Clinic 2 QTR90. p3-4) VENECIA
== END 2018-12-07 16:56 | disposition home or self-care (01) | DRG 444 ==
LOC: ED 02:16 → 2S 07:56 → SUATTDRO 07:56 → 2S 09:15
DX: Z68.41 Body mass index [BMI] 40.0-44.9, adult; E66.01 Morbid (severe) obesity due to excess calories; K80.20 Calculus of gallbladder without cholecystitis without obstruction; I10 Essential (primary) hypertension; E78.5 Hyperlipidemia, unspecified; Z51.81 Encounter for therapeutic drug level monitoring; K75.81 Nonalcoholic steatohepatitis (NASH); R09.02 Hypoxemia; R91.1 Solitary pulmonary nodule; Z79.82 Long term (current) use of aspirin; J69.0 Pneumonitis due to inhalation of food and vomit; Z86.19 Personal history of other infectious and parasitic diseases; Z79.4 Long term (current) use of insulin; Z83.3 Family history of diabetes mellitus; K21.9 Gastro-esophageal reflux disease without esophagitis; K82.8 Other specified diseases of gallbladder; Z79.899 Other long term (current) drug therapy; E11.65 Type 2 diabetes mellitus with hyperglycemia

== ENCOUNTER 2018-12-22 11:06 | Inpatient (IN) ==
--- NOTE | 2018-12-17 13:00 | Anesthesiology Consultation ---
Date of Service December 17, 2018 Assessment & Plan (1) Encounter for pre-operative examination: Chart Review Chart Review: Acceptable Risk for Surgery and Patient NOT seen in Pre Admission Testing Consults Requested none History Surgery Operation Date: 12/22/18 14:30 Proposed Procedures p Laparoscopic Cholecystectomy - Jaxon Francisco MD, FACS Height/Weight Height: 1.6 m Weight: 110.677 kg Allergies Allergy/AdvReac Type Severity Reaction Status Date / Time No Known Allergies Allergy Verified 12/15/18 22:34 Medications Home Medications Medication Instructions Recorded Confirmed Last Taken Prilosec OTC 20 mg PO QAM 12/06/18 12/15/18 12/15/18 amlodipine 10 mg PO QAM 12/06/18 12/15/18 12/15/18 aspirin 81 mg PO QAM 12/06/18 12/15/18 12/15/18 cyanocobalamin (vitamin B-12) 1,000 mcg PO QAM 12/06/18 12/15/18 12/15/18 [Vitamin B-12] hydrochlorothiazide 25 mg PO QAM 12/06/18 12/15/18 12/15/18 metformin 1,000 mg PO Q12H 12/06/18 12/15/18 12/15/18 AM DOSE pravastatin 40 mg PO HS 12/06/18 12/15/18 12/14/18 insulin detemir U-100 [Levemir See Rx Instructions .ROUTE .COMPLEX 12/15/18 12/15/18 Unknown FlexTouch U-100 Insuln] insulin lispro [Humalog KwikPen See Rx Instructions .ROUTE .COMPLEX 12/15/18 12/15/18 Unknown Insulin] losartan 100 mg PO QAM 12/15/18 12/15/18 12/15/18 ondansetron HCl [Zofran] 4 mg PO Q6H PRN #20 tab 12/16/18 Unknown Past Medical History Medical History Amebic hepatitis Diabetes Dyslipidemia GERD (gastroesophageal reflux disease) Hypertension Obesity Past Family History Family History Unknown Diabetes Social History Smoking Status: Never smoker Hx Alcohol Use: No Hx Substance Use: No Testing Electrocardiogram Date: 12/15/18 Findings: + ST @ (108) Left axis deviation Minimal voltage criteria for LVH, may be normal variant When compared with ECG of 12/06/2018 no significant change was found Laboratory Results Laboratory Tests 12/15/18 12/15/18 12/15/18 21:25 21:25 21:25 WBC 24.53 H Hgb 12.2 L Hct 40.1 L Plt Count 325 PT 10.3 INR 1.0 APTT 25.6 Sodium 134 L Potassium 4.0 Chloride 102 Carbon Dioxide 20 L BUN 20 H Creatinine 1.02 Glucose 224 H
[~2018-12-22 11:06] MED LIST: LR 15ML/HR IV SCH
--- NOTE | 2018-12-22 11:28 | History & Physical Bridge Note ---
Date of Service December 22, 2018 History & Physical Bridge Note I have examined the patient, reviewed the History & Physical and in the interval since the performance of the History & Physical I have noted the following changes of clinical significance: no changes noted
[2018-12-22] MEDS ORDERED: cefOXitin 2,000 MG/60 ML BAG IV ONE (12:15)
[2018-12-22] MEDS ORDERED: BUPIVACAINE 0.5 % 5 MG/1 ML MPF 30ML VIAL ONE (13:13)
[2018-12-22] MEDS ORDERED: ONDANSETRON INJ 2 MG/ML 2 ML VIAL IV PRN (13:14)
[2018-12-22] MEDS ORDERED: ATROPINE SULFATE 0.1 MG/ML 10ML SYR IV PRN (13:14)
[2018-12-22] MEDS ORDERED: HYDROmorphone INJ 1 MG/ML SYRINGE IV PRN ×2 (13:14→16:28)
[2018-12-22] MEDS ORDERED: ePHEDrine sulfate 50 MG/ML AMP IV PRN (13:14)
[2018-12-22] MEDS ORDERED: fentaNYL citrate 100 MCG/2 ML VIAL IV PRN (13:14)
[2018-12-22] MEDS ORDERED: fentaNYL citrate 100 MCG/2 ML VIAL ONE ×2 (13:16→14:02)
[2018-12-22] MEDS ORDERED: MIDAZOLAM HCL 1 MG/ML 2ML VIAL ONE (13:16)
[2018-12-22] MEDS ORDERED: PHENYLEPHRINE 100MCG/ML 5ML SYR ONE (14:02)
[2018-12-22] MEDS ORDERED: ONDANSETRON INJ 2 MG/ML 2 ML VIAL ONE (14:02)
[2018-12-22] MEDS ORDERED: LIDOCAINE HCL 2% 2 ML VIAL/AMP(20MG/ML) INFIL ONE (14:02)
[2018-12-22] MEDS ORDERED: GLYCOPYRROLATE 0.2 MG/ML VIAL ONE (14:02)
[2018-12-22] MEDS ORDERED: ROCURONIUM BROMIDE 10 MG/ML 5 ML VIAL ONE (14:02)
[2018-12-22] MEDS ORDERED: NEOSTIGMINE METHYLSULFATE 1 MG/ML 10ML VIAL ONE (14:02)
[2018-12-22] MEDS ORDERED: PROPOFOL IV EMULSION 10 MG/ML 20 ML VIAL IV ONE (14:02)
[2018-12-22] MEDS ORDERED: SURGICEL ABSORB HEMOSTAT 2IN X 14IN TOP ONE (14:10)
[2018-12-22] MEDS ORDERED: FLOSEAL HEMOSTATIC MATRIX 10ML TOP ONE (14:13)
--- NOTE | 2018-12-22 14:37 | Operative Report ---
Post Operative Report Pre & Post Diagnosis Operation Date: 12/22/18 13:20 Pre-Op Diagnosis: CHOLELITHIASIS Post-Op Diagnosis: CHOLELITHIASIS chronic cholecystitis and adhesions Procedure Operation Date: 12/22/18 13:20 Actual Procedures p Laparoscopic Cholecystectomy(Not Applicable) - Jaxon Francisco MD, FACS Surgeon Jaxon Francisco MD, FACS [facility] Estimated Blood Loss 30 Findings Consistent with Post-Op Diagnosis Specimens gallbladder Description of Procedure see dictation I attest to the content of the Intraoperative Record and any orders documented therein. Any exceptions are noted below.
[2018-12-22] MEDS ORDERED: ACETAMINOPHEN 1,000 MG/100 ML VIAL IV ONE (14:38)
[2018-12-22] MEDS ORDERED: ACETAMINOPHEN 1000 MG/100 ML IV IV ONE (15:11)
--- NOTE | 2018-12-22 15:34 | Anesthesiology Progress Note ---
Date of Service December 22, 2018 Anesthesia Post Procedure Vital Signs Vital Signs: Temp Pulse Pulse Resp BP Pulse Ox 12/22/18 15:25 68 16 107/65 94 12/22/18 15:15 78 16 102/70 96 12/22/18 15:05 77 19 107/74 98 12/22/18 14:56 97.3 F L 84 22 108/76 97 12/22/18 11:32 97.7 F 91 H 22 169/97 H 96 Pain Intensity Abdomen: Pain Intensity: 3 Notes Mental Status: alert / awake / arousable and participated in evaluation Patient Amnestic to Procedure: Yes Nausea / Vomiting: adequately controlled Pain: adequately controlled Airway Patency, RR, SpO2: stable & adequate BP & HR: stable & adequate Hydration State: stable & adequate Anesthetic Complications: no major complications apparent and Pt Satisfied with anesthetic care
[2018-12-22] MEDS ORDERED: HYDROmorphone INJ 0.5 MG/0.5 ML SYR IV PRN (16:28)
[2018-12-22] MEDS ORDERED: HYDROCODONE/ACETAMOPHEN 5/325MG TAB PO PRN (16:28)
[2018-12-22] MEDS ORDERED: PROMETHAZINE HCL 12.5 MG in SODIUM CHLORIDE 0.9% 50 ML IV PRN (16:28)
[2018-12-22] MEDS: SODIUM CHLORIDE 0.9% 1000ML 1,000 ML IV SCH (16:46)
[2018-12-22] MEDS: HYDROCODONE/ACETAMOPHEN 5/325MG TAB PO PRN (17:00)
[2018-12-22] MEDS: ONDANSETRON INJ 2 MG/ML 2 ML VIAL IV PRN (17:02)
[2018-12-22] MEDS ORDERED: DEXTROSE 50% 50 ML SYRINGE IV PRN (17:32)
[2018-12-22] MEDS ORDERED: GLUCOSE 40% GEL 15 GM TUBE PO PRN (17:32)
[2018-12-22] MEDS ORDERED: CARBOHYDRATES FOR HYPOGLYCEMIA PO PRN (17:32)
[2018-12-22] MEDS ORDERED: GLUCAGON FOR INJ 1 MG VIAL SQ PRN (17:32)
[2018-12-22] MEDS ORDERED: GLUCOSE 10 TABS/TUBE PO PRN (17:32)
--- NOTE | 2018-12-22 18:10 | Hospitalist Consultation ---
Date of Consultation December 22, 2018 Assessment & Plan (1) Status post cholecystectomy: - Recently admitted 12/06-12/10 for nausea/vomiting likely related to gallstones. - S/p lap jelani this afternoon, doing well post op. - Cefoxitin 2 gm IV q8hr. - Pain control and DVT ppx per primary team. - IS q1hr WA. (2) Type II diabetes mellitus: - Most recent A1C was 10.3 in Nov 2018; required insulin drip during admission in Nov for BG >500. - Will resume home Levemir 50 units BID this evening. - Continue home Humalog regimen with correction factor of 15, carb ratio 1 to 5. - Monitor blood glucose levels ac/hs. - Holding home Metformin; can resume at discharge. (3) Hyperlipidemia: - Continue statin as prescribed. (4) GERD (gastroesophageal reflux disease): - Holding PPI while inpatient. (5) Hypertension: - Continue Amlodipine 10 mg qAM and Losartan 100 mg qAM; holding HCTZ, will restart pending evaluation of renal function on 12/23/18. - BP has been well controlled. (6) Obesity: - BMI 39.2. - Encourage weight loss and exercise. (7) DVT prophylaxis: - Per primary team. Dispo: Will continue to follow for glycemic management, please call with questions. Supervising Physician Co-Signing Physician Notes Attending Attestation: Patient seen/examined, chart reviewed, care plan d/w CHERISE Vigil. I agree with the arnold components of her documentation. 68-year-old male with history of type 2 diabetes, hypertension, hyperlipidemia and obesity who presented today for elective laparoscopic cholecystectomy by Dr. Jaxon Francisco. I saw the patient postop on the surgical floor and he was resting comfortably. He did have some dinner this evening although he did state he was mildly nauseous. He did not have any vomiting. Denies any chest pain or shortness of breath. Dr. Francisco's operative note suggests that the patient's gallbladder appeared to have evidence of chronic cholecystitis with adhesions. Past medical history, past surgical history, allergies, medications, social history, family history-reviewed Vital signs stable and afebrile Examination: General-obese male in no acute distress Mouth-mucous membranes modestly dry Neck-supple no JVD Heart-regular rate rhythm S1-S2 no murmurs Lungs-clear to auscultation bilaterally Abdomen-mildly distended, bowel sounds present but diminished, mild incisional tenderness, no hepatosplenomegaly Extremities-no edema pulses 2+ bilateral Evening fingerstick blood sugar was over 200 Assessment and plan: 68-year-old male with type 2 diabetes, hypertension, hyperlipidemia, and obesity who underwent uncomplicated laparoscopic cholecystectomy today by Dr. Jaxon Francisco. We have been asked by Dr. Francisco to manage the patient's type 2 diabetes and other medical problems. 1. type 2 diabetes: I agree with Ms. Vigil's plan for continuation of his Levemir twice a day as well as the NovoLog as outlined in her documentation. Type II diabetic diet with blood sugars before meals and at bedtime. Adjust insulins as necessary. 2. Hypertension: Agree with holding hydrochlorothiazide and checking blood work in the morning. If creatinine and electrolytes are stable can resume HCTZ at that time. Continue other home medications as previous. Shahid Kerr MD History of Present Illness Reason for Consultation: Medical Management Attending Physician: Jaxon Francisco MD, [facility] History of Present Illness Mr. Murphy is a 68 year old male with past medical history of type II DM, hyperlipidemia, GERD, HTN and obesity who presented for a planned laparoscopic cholecystectomy. He is feeling well overall post operatively. Does complain of mild right shoulder pain -- will continue to monitor. Denies chest pain, SOB, LE edema, N/V, diarrhea or constipation. Pt. was recently admitted for N/V and required an insulin drip in the setting of poorly controlled DM. Has been using Lantus 50 units BID along with SSI coverage with CF of 15 and 1 to 5 carb ratio. Is also on Metformin but med has been held recently due to surgery. Will resume home insulin regimen starting this evening. Allergies Allergy/AdvReac Type Severity Reaction Status Date / Time No Known Allergies Allergy Verified 12/18/18 09:34 Home Medications Home Medications Medication Instructions Recorded Confirmed Type Prilosec OTC 20 mg PO QAM 12/06/18 12/18/18 History amlodipine 10 mg PO QAM 12/06/18 12/22/18 History aspirin 81 mg PO QAM 12/06/18 12/22/18 History cyanocobalamin (vitamin B-12) 1,000 mcg PO QAM 12/06/18 12/22/18 History [Vitamin B-12] hydrochlorothiazide 25 mg PO QAM 12/06/18 12/22/18 History metformin 1,000 mg PO Q12H 12/06/18 12/18/18 History pravastatin 40 mg PO HS 12/06/18 12/18/18 History insulin detemir U-100 [Levemir 50 unit SUBCUT BID 12/15/18 12/22/18 History FlexTouch U-100 Insuln] insulin lispro [Humalog KwikPen 1 dose SUBCUT UD 12/15/18 12/22/18 History Insulin] losartan 100 mg PO QAM 12/15/18 12/22/18 History ondansetron HCl [Zofran] 4 mg PO Q6H PRN #20 tab 12/16/18 12/18/18 Rx Patient History Medical History Cancer SKIN ON FACE Diabetes mellitus, type 2 Kidney stones Amebic hepatitis PT DENIES Dyslipidemia GERD (gastroesophageal reflux disease) Hypertension Obesity Surgical History History of anesthesia reaction DIFFICULTY BREATHING AFTER ANESTHESIA/HICCUPS AFTER SURGERY History of colonoscopy History of cystoscopy STONE REMOVAL History of esophagogastroduodenoscopy (EGD) Hx of oral surgery GROWTH REMOVED FROM INSIDE OF MOUTH (BENIGN) Family History Unknown No problems noted. Mother Diabetes Social History Preferred Language: Tuvaluan Communication Ability: Effective Arc Cutter Required: No Beliefs That Will Affect Care: None Current Living Situation: Spouse Other Information That Helps Us Care for You: No Feels Safe at Home: Yes Safety Concerns: Feels Safe At This Time Smoking Status: Never smoker Hx Alcohol Use: No Hx Substance Use: No Review of Systems 12 point R.O.S. negative unless specified above Constitutional: no fever, no chills, no fatigue, no weakness and no anorexia Respiratory: no cough and no dyspnea Cardiovascular: no chest pain, no palpitations, no syncope and no edema Gastrointestinal: no abdominal pain, no nausea, no vomiting, no constipation and no diarrhea/loose stools Genitourinary (Male): no difficulty urinating Musculoskeletal: + joint pain (Right shoulder pain) Allergy / Immunological: no rash Physical Exam Vital Signs (Past 24 Hours): Last Vital Signs Temp 36.2 C L 12/22/18 17:21 Pulse 86 12/22/18 17:21 Resp 17 12/22/18 17:21 BP 129/83 12/22/18 17:21 Pulse Ox 94 12/22/18 17:21 Physical Exam: General: Resting comfortably in no apparent distress; A&OX3 HEENT: NC/AT; PERRLA with EOMI; [place] conjunctiva, MMM. Neck: Supple and nontender Cardiac: RRR Lungs: CTA bilaterally Abdomen: Incision sites with dressing in place, no drainage noted; Bowel normoactive X 4; Nontender to palpation Extremities: Warm. No edema present Neuro: No focal weakness Skin: No rash Results & Data Laboratory Results 12/22/18 12/22/18 Range/Units 14:59 11:35 POC Glucose 271 H 273 H (70-99)
[2018-12-22] MEDS: INSULIN ASPART 100 UNITS/ML 3 ML PEN SC SCH ×2 (19:01→21:01)
[2018-12-22] MEDS: DOCUSATE SODIUM/SENNA 50/8.6MG TAB PO SCH (20:57)
[2018-12-22] MEDS: MAGNESIUM HYDROXIDE SUSP 30 ML UDC PO SCH (20:57)
[2018-12-22] MEDS: PRAVASTATIN SOD 40 MG TAB PO SCH (20:57)
[2018-12-22] MEDS ORDERED: INSULIN DETEMIR FLEXPEN/FLEX TOUCH 100 UNITS/ML 3ML SC SCH (21:00)
[2018-12-22] MEDS: INSULIN DETEMIR FLEXPEN/FLEX TOUCH 100 UNITS/ML 3ML SC SCH (21:03)
[2018-12-22] MEDS: cefOXitin 2,000 MG in DEXTROSE 5% 50 ML IV SCH (21:18)
[2018-12-22 21:47] LABS: Hematocrit (blood only) 34.8 % (42-52); Hemoglobin 10.5 g/dL (14.0-18.0)
--- NOTE | 2018-12-23 00:35 | Operative Report ---
DATE OF OPERATION: 12/22/2018 NAME OF OPERATION: Laparoscopic cholecystectomy with lysis of adhesions. PREOPERATIVE DIAGNOSIS: Biliary colic. POSTOPERATIVE DIAGNOSIS: Biliary colic with chronic cholecystitis. STAFF SURGEON: Jaxon Francisco MD SECTION CUTTER: Harvey Love PA-C ANESTHESIA: General. DESCRIPTION OF PROCEDURE: The patient was brought in the operating room and placed on the operating table in supine position. His abdomen was prepped and draped in usual fashion. Pneumatic stockings, orogastric tube were placed. The patient was morbidly obese. Incision was made just above the umbilicus using 0.5% plain Marcaine to anesthetize skin and subcutaneous tissue. The needle was placed into the abdomen and then a pneumoperitoneum produced. At this point, 11 mm port was passed, the scope was passed. The patient was placed in reverse Trendelenburg position, rotated to the left. Three additional ports were placed, 5 mm ports, 1 cephalad and 2 laterally. I had to place an extra port to retract the omentum and the patient was morbidly obese. His gallbladder was somewhat difficult to retract. He had adhesions of the omentum to the liver and gallbladder. These were taken down. Dissection was carried out at the [facility] with some difficulty identifying the cystic duct and cystic artery. These were clipped and transected. The gallbladder had chronic inflammation and scar tissue in the posterior gallbladder wall. The gallbladder was mobilized away from the liver. I did place some Surgicel in the [facility] with some FloSeal and a #15-round Jean Paul-Olson drain through the lateral port site, secured to the skin using 3-0 nylon suture. The gallbladder was placed in an Endobag and removed through the umbilical site. All ports were removed. The umbilical fascia closed using 0-PDS suture. I did have to increase the size of the fascial defect because of the size of the gallbladder. The skin was reapproximated using 4-0 nylon suture. The patient was transferred to recovery room in stable condition. It took me extra time because of the patient's morbid obesity and the difficulty of the operation. My trade sales assistant helped with prepping, draping, removal of the gallbladder and closure of the wounds. I attest to the content of the Intraoperative Record and any orders documented therein. Any exception s are noted below.
[2018-12-23] MEDS: HYDROCODONE/ACETAMOPHEN 5/325MG TAB PO PRN ×2 (03:13→12:18)
[2018-12-23] MEDS: cefOXitin 2,000 MG in DEXTROSE 5% 50 ML IV SCH ×3 (05:25→21:55)
[2018-12-23] MEDS: ONDANSETRON INJ 2 MG/ML 2 ML VIAL IV PRN ×2 (06:14→18:49)
[2018-12-23 06:43] LABS: BUN Creatinine Ratio 9.6 (10-20); Calcium 7.9 mg/dl (8.5-10.1); Creatinine Clr Calc Pharmacy 41.8 ml/min; Est GFR (African American) 39.3; Est GFR (Non-African American) 33.9
[2018-12-23 06:46] LABS: Albumin Globulin Ratio 0.8 (0.9-2); Bilirubin Direct 0.2 mg/dl (0-0.2); Bilirubin,Total 0.4 mg/dl (0.2-1); Globulin 3.7 gm/dl (2.5-4.0); Phosphorus 2.8 mg/dl (2.5-4.9); Total Protein 6.7 gm/dl (6.4-8.2)
--- NOTE | 2018-12-23 06:49 | Progress Note ---
Date of Service December 23, 2018 Assessment & Plan (1) Status post cholecystectomy: chronic cholecystitis- cont IV atbx increase mobility- leave drain will need 1-2 more days in hospital In ER/Hospital twice in past couple weeks Subjective sitting in chair, vitals stable drain output serosang- expected didn't walk much yet Physical Exam Vital Signs (Past 24 Hours): Last Vital Signs Temp 36.5 C 12/23/18 02:55 Pulse 87 12/23/18 02:55 Resp 18 12/23/18 02:55 BP 133/66 12/23/18 02:55 Pulse Ox 93 12/23/18 02:55 abd- distended- baseline, incisions intact, drain in place
[2018-12-23 07:03] LABS: Basophils # (auto) 0.02 K/uL (0-0.2); Basophils % (auto) 0.2 %; Eosinophils # (auto) 0.16 K/uL (0-0.5); Eosinophils % (auto) 1.3 %; Hematocrit (blood only) 34.3 % (42-52); Hemoglobin 10.4 g/dL (14.0-18.0); Immature Granulocytes # (auto) 0.02 K/uL (0.00-0.02); Immature Granulocytes % (auto) 0.2 %; Lymphocytes # (auto) 0.75 K/uL (1.2-3.4); Lymphocytes % (auto) 6.1 %; Mean Corpuscular Hgb Conc 30.3 g/dL (32-36); Mean Corpuscular Volume 71.6 fL (80-100); Mean Platelet Volume 9.3 fL (7.4-10.4); Monocytes # (auto) 1.13 K/uL (0.11-0.59); Monocytes % (auto) 9.1 %; Neutrophils # (auto) 10.29 K/uL (1.4-6.5); Neutrophils % (auto) 83.1 %; Platelet Count 319 K/uL (130-400); RDW Coefficient of Variation 17.5 % (11.5-14.5); RDW Standard Deviation 45.8 fL (36.4-46.3); Red Blood Count 4.79 M/uL (4.7-6.1); White Blood Count 12.37 K/uL (4.8-10.8)
[2018-12-23 07:24] LABS: Microcytosis Present
[2018-12-23] MEDS: AMLODIPINE BESYLATE 5 MG TAB PO SCH (08:44)
[2018-12-23] MEDS: MAGNESIUM HYDROXIDE SUSP 30 ML UDC PO SCH ×2 (08:44→20:38)
[2018-12-23] MEDS: LOSARTAN POTASSIUM 50 MG TAB PO SCH (08:44)
[2018-12-23] MEDS: DOCUSATE SODIUM/SENNA 50/8.6MG TAB PO SCH ×2 (08:45→20:38)
[2018-12-23] MEDS: INSULIN DETEMIR FLEXPEN/FLEX TOUCH 100 UNITS/ML 3ML SC SCH ×2 (08:46→20:41)
[2018-12-23] MEDS: INSULIN ASPART 100 UNITS/ML 3 ML PEN SC SCH ×4 (08:47→20:44)
[2018-12-23] MEDS: HEPARIN SOD 5,000 UNIT/0.5 ML VIAL SQ SCH ×2 (08:47→20:45)
[2018-12-23] MEDS ORDERED: hydroCHLOROthiazide 25 MG TAB PO SCH (09:00)
--- NOTE | 2018-12-23 10:58 | Hospitalist Progress Note ---
Date of Service December 23, 2018 Assessment & Plan (1) Status post cholecystectomy: - Recently admitted 12/06-12/10 for nausea/vomiting likely related to gallstones. - S/p lap jelani on 12/22, POD#1. - Cefoxitin 2 gm IV q8hr. - Pain control and DVT ppx per primary team. - Encourage IS q1hr WA. (2) Type II diabetes mellitus: - Most recent A1C was 10.3 in Nov 2018; required insulin drip during admission in Nov for BG >500. - BG remains elevated, has been >200 post operatively. - Resumed home Levemir 50 units BID. - Continue home Humalog regimen -- adjust to correction factor of 10, carb ratio 1 to 5. - Monitor blood glucose levels ac/hs. - Holding home Metformin; can resume at discharge. (3) Acute kidney injury: - Creatinine increased to 1.9 post op; baseline ~0.9-1.0. - Will increase IV fluids to 100 cc/hr. - Continue to hold home HCTZ. (4) Hyperlipidemia: - Continue statin as prescribed. (5) GERD (gastroesophageal reflux disease): - Holding PPI while inpatient. (6) Hypertension: - Continue Amlodipine 10 mg qAM and Losartan 100 mg qAM; holding HCTZ in setting of IRENA. - BP has been well controlled. (7) Obesity: - BMI 39.2. - Encourage weight loss and exercise. (8) DVT prophylaxis: - Per primary team. Dispo: Will continue to follow for glycemic management, please call with questions. Supervising Physician Co-Signing Physician Notes Attending Attestation: Chart reviewed in detail, care plan d/w CHERISE Vigil. I agree w/ the arnold components of her documentation. Pt has developed IRENA in setting of recent surgery. Likely prerenal / hypoperfusion. Would hold ARB in addition to HCTZ. Adjust insulins for T2DM. Shahid Kerr MD Subjective Pt. is doing well overall today. He has increased abd bloating and gas. Has been passing flatus, no BM yet. Complains of mild pain at incision sites on abdomen. Plan to monitor over next 24 hours. Review of Systems All systems reviewed & are unremarkable except as noted in HPI & below Constitutional: no fever, no chills, no fatigue, no weakness and no anorexia Respiratory: no cough and no dyspnea Cardiovascular: no chest pain, no palpitations, no syncope and no edema Gastrointestinal: + abdominal pain, + bloating, + excessive flatulence and + constipation; no nausea and no vomiting Genitourinary (Male): no difficulty urinating Musculoskeletal: no joint pain Allergy / Immunological: no rash Physical Exam Vital Signs (Past 24 Hours): Last Vital Signs Temp 36.5 C 12/23/18 07:25 Pulse 90 12/23/18 07:25 Resp 22 12/23/18 07:25 BP 156/90 H 12/23/18 07:25 Pulse Ox 94 12/23/18 07:25 Physical Exam: General: Resting comfortably in no apparent distress; A&OX3 HEENT: NC/AT; PERRLA with EOMI; [place] conjunctiva, MMM. Neck: Supple and nontender Cardiac: RRR Lungs: CTA bilaterally Abdomen: Incision sites with dressing in place; Bowel normoactive X 4; Nontender to palpation Extremities: Warm. No edema present Neuro: No focal weakness Skin: No rash Results & Data Laboratory Results 12/23/18 12/23/18 12/23/18 Range/Units 08:13 05:51 05:51 WBC 12.37 H (4.8-10.8) K/uL RBC 4.79 (4.7-6.1) M/uL Hgb 10.4 L (14.0-18.0) g/dL Hct 34.3 L (42-52) % MCV 71.6 L (80-100) fL MCH 21.7 L (25-34) pg MCHC 30.3 L (32-36) g/dL RDW Std Deviation 45.8 (36.4-46.3) fL RDW Coeff of Estela 17.5 H (11.5-14.5) % Plt Count 319 (130-400) K/uL MPV 9.3 (7.4-10.4) fL Immature Gran % (Auto) 0.2 % Neut % (Auto) 83.1 % Lymph % (Auto) 6.1 % [place] % (Auto) 9.1 % Eos % (Auto) 1.3 % Baso % (Auto) 0.2 % Immature Gran # (Auto) 0.02 (0.00-0.02) K/uL Neut # (Auto) 10.29 H (1.4-6.5) K/uL Lymph # (Auto) 0.75 L (1.2-3.4) K/uL [place] # (Auto) 1.13 H (0.11-0.59) K/uL Eos # (Auto) 0.16 (0-0.5) K/uL Baso # (Auto) 0.02 (0-0.2) K/uL Microcytosis Present Sodium 134 L (136-145) mmol/L Potassium 4.0 (3.5-5.1) mmol/L Chloride 101 (98-107) mmol/L Carbon Dioxide 26 (21-32) mmol/L Anion Gap 7.0 (3-11) BUN 19 H (7-18) mg/dl Creatinine 1.97 H (0.6-1.4) mg/dl Est Cr Clr Drug Dosing 41.8 ml/min Est GFR ( Amer) 39.3 Est GFR (Non-Af Amer) 33.9 BUN/Creatinine Ratio 9.6 L (10-20) Glucose 182 H (70-99) mg/dl POC Glucose 206 H (70-99) Calcium 7.9 L (8.5-10.1) mg/dl Phosphorus 2.8 (2.5-4.9) mg/dl Total Bilirubin 0.4 (0.2-1) mg/dl Direct Bilirubin 0.2 (0-0.2) mg/dl AST 42 H (15-37) U/L ALT 62 (12-78) U/L Alkaline Phosphatase 78 (45-117) U/L Total Protein 6.7 (6.4-8.2) gm/dl Albumin 3.0 L (3.4-5.0) gm/dl Globulin 3.7 (2.5-4.0) gm/dl Albumin/Globulin Ratio 0.8 L (0.9-2) 12/22/18 12/22/18 12/22/18 Range/Units 21:39 20:55 17:56 WBC (4.8-10.8) K/uL RBC (4.7-6.1) M/uL Hgb 10.5 L (14.0-18.0) g/dL Hct 34.8 L (42-52) % MCV (80-100) fL MCH (25-34) pg MCHC (32-36) g/dL RDW Std Deviation (36.4-46.3) fL RDW Coeff of Estela (11.5-14.5) % Plt Count (130-400) K/uL MPV (7.4-10.4) fL Immature Gran % (Auto) % Neut % (Auto) % Lymph % (Auto) % [place] % (Auto) % Eos % (Auto) % Baso % (Auto) % Immature Gran # (Auto) (0.00-0.02) K/uL Neut # (Auto) (1.4-6.5) K/uL Lymph # (Auto) (1.2-3.4) K/uL [place] # (Auto) (0.11-0.59) K/uL Eos # (Auto) (0-0.5) K/uL Baso # (Auto) (0-0.2) K/uL Microcytosis Sodium (136-145) mmol/L Potassium (3.5-5.1) mmol/L Chloride (98-107) mmol/L Carbon Dioxide (21-32) mmol/L Anion Gap (3-11) BUN (7-18) mg/dl Creatinine (0.6-1.4) mg/dl Est Cr Clr Drug Dosing ml/min Est GFR ( Amer) Est GFR (Non-Af Amer) BUN/Creatinine Ratio (10-20) Glucose (70-99) mg/dl POC Glucose 223 H 239 H (70-99) Calcium (8.5-10.1) mg/dl Phosphorus (2.5-4.9) mg/dl Total Bilirubin (0.2-1) mg/dl Direct Bilirubin (0-0.2) mg/dl AST (15-37) U/L ALT (12-78) U/L Alkaline Phosphatase (45-117) U/L Total Protein (6.4-8.2) gm/dl Albumin (3.4-5.0) gm/dl Globulin (2.5-4.0) gm/dl Albumin/Globulin Ratio (0.9-2) 12/22/18 12/22/18 Range/Units 14:59 11:35 WBC (4.8-10.8) K/uL RBC (4.7-6.1) M/uL Hgb (14.0-18.0) g/dL Hct (42-52) % MCV (80-100) fL MCH (25-34) pg MCHC (32-36) g/dL RDW Std Deviation (36.4-46.3) fL RDW Coeff of Estela (11.5-14.5) % Plt Count (130-400) K/uL MPV (7.4-10.4) fL Immature Gran % (Auto) % Neut % (Auto) % Lymph % (Auto) % [place] % (Auto) % Eos % (Auto) % Baso % (Auto) % Immature Gran # (Auto) (0.00-0.02) K/uL Neut # (Auto) (1.4-6.5) K/uL Lymph # (Auto) (1.2-3.4) K/uL [place] # (Auto) (0.11-0.59) K/uL Eos # (Auto) (0-0.5) K/uL Baso # (Auto) (0-0.2) K/uL Microcytosis Sodium (136-145) mmol/L Potassium (3.5-5.1) mmol/L Chloride (98-107) mmol/L Carbon Dioxide (21-32) mmol/L Anion Gap (3-11) BUN (7-18) mg/dl Creatinine (0.6-1.4) mg/dl Est Cr Clr Drug Dosing ml/min Est GFR ( Amer) Est GFR (Non-Af Amer) BUN/Creatinine Ratio (10-20) Glucose (70-99) mg/dl POC Glucose 271 H 273 H (70-99) Calcium (8.5-10.1) mg/dl Phosphorus (2.5-4.9) mg/dl Total Bilirubin (0.2-1) mg/dl Direct Bilirubin (0-0.2) mg/dl AST (15-37) U/L ALT (12-78) U/L Alkaline Phosphatase (45-117) U/L Total Protein (6.4-8.2) gm/dl Albumin (3.4-5.0) gm/dl Globulin (2.5-4.0) gm/dl Albumin/Globulin Ratio (0.9-2)
--- NOTE | 2018-12-23 11:27 | Anesthesiology Progress Note ---
Date of Service December 23, 2018 Anesthesia Post Procedure Vital Signs Vital Signs: Temp Pulse Pulse Pulse Resp BP Pulse Ox 12/23/18 07:25 36.5 C 90 22 156/90 H 94 12/23/18 02:55 36.5 C 87 18 133/66 93 12/22/18 22:57 36.4 C L 84 16 148/87 H 92 12/22/18 18:10 36.6 C 82 18 127/83 92 12/22/18 17:21 36.2 C L 86 17 129/83 94 12/22/18 16:52 36.3 C L 67 17 136/79 96 12/22/18 16:10 36.6 C 67 18 120/73 94 12/22/18 16:00 70 18 108/68 94 12/22/18 15:45 64 17 114/75 94 12/22/18 15:35 36.8 C 74 17 111/68 95 12/22/18 15:25 68 16 107/65 94 12/22/18 15:15 78 16 102/70 96 12/22/18 15:05 77 19 107/74 98 12/22/18 14:56 36.3 C L 84 22 108/76 97 12/22/18 11:32 36.5 C 91 H 22 169/97 H 96 Pain Intensity Abdomen: Pain Intensity: 3 Notes Mental Status: alert / awake / arousable and participated in evaluation Patient Amnestic to Procedure: Yes Nausea / Vomiting: adequately controlled Pain: adequately controlled Airway Patency, RR, SpO2: stable & adequate BP & HR: stable & adequate Hydration State: stable & adequate Anesthetic Complications: no major complications apparent
[2018-12-23] MEDS: SODIUM CHLORIDE 0.9% 1000ML 1,000 ML IV SCH ×2 (12:16→21:57)
[2018-12-23] MEDS ORDERED: HydrALAZINE HCL 20 MG/ML VIAL IV PRN (17:38)
[2018-12-23] MEDS: PRAVASTATIN SOD 40 MG TAB PO SCH (20:38)
[2018-12-24] MEDS: ONDANSETRON INJ 2 MG/ML 2 ML VIAL IV PRN ×4 (00:27→20:52)
[2018-12-24] MEDS: HYDROCODONE/ACETAMOPHEN 5/325MG TAB PO PRN ×3 (05:12→21:05)
[2018-12-24] MEDS: cefOXitin 2,000 MG in DEXTROSE 5% 50 ML IV SCH ×3 (05:34→21:06)
--- NOTE | 2018-12-24 06:12 | Progress Note ---
Date of Service December 24, 2018 Assessment & Plan (1) Postoperative urinary retention: (2) Status post cholecystectomy: clear liquids only- likely postop incidental ileus- hold on NG unless vomits says he passed some flatus. Also urinary retention- lafleur placed will ask to see- encourage walking, try some Reglan check Mg, Phos, K Subjective urinary retention, incidental ileus likely- some flatus bloated, belching Physical Exam Vital Signs (Past 24 Hours): Last Vital Signs Temp 37.3 C 12/24/18 00:04 Pulse 99 H 12/24/18 05:57 Resp 18 12/24/18 05:57 BP 166/81 H 12/24/18 05:57 Pulse Ox 92 12/24/18 00:04 abd- distended, decreased bowel sounds
[2018-12-24] MEDS: SODIUM CHLORIDE 0.9% 1000ML 1,000 ML IV SCH ×3 (07:04→21:06)
[2018-12-24] MEDS: METOCLOPRAMIDE HCL INJ 5 MG/ML 2 ML VIAL IV SCH ×3 (07:05→17:52)
[2018-12-24 08:06] LABS: Hematocrit (blood only) 33.2 % (42-52); Hemoglobin 10.1 g/dL (14.0-18.0); Mean Corpuscular Hgb Conc 30.4 g/dL (32-36); Mean Corpuscular Volume 71.6 fL (80-100); Mean Platelet Volume 9.3 fL (7.4-10.4); Platelet Count 290 K/uL (130-400); RDW Coefficient of Variation 17.8 % (11.5-14.5); Red Blood Count 4.64 M/uL (4.7-6.1); White Blood Count 7.52 K/uL (4.8-10.8)
[2018-12-24] MEDS ORDERED: PHARMACY GLYCEMIC MGMT CONSULT PRN (08:07)
[2018-12-24 08:25] LABS: Calcium 8.6 mg/dl (8.5-10.1); Est GFR (African American) 38.4; Est GFR (Non-African American) 33.1; Magnesium 2.8 mg/dl (1.8-2.4); Potassium 4.3 mmol/L (3.5-5.1)
[2018-12-24 08:27] LABS: Phosphorus 2.2 mg/dl (2.5-4.9)
[2018-12-24] MEDS ORDERED: INSULIN DETEMIR FLEXPEN/FLEX TOUCH 100 UNITS/ML 3ML SC SCH ×2 (09:00→21:00)
--- NOTE | 2018-12-24 09:16 | Pharmacy Report ---
Pharmacy Glycemic Short Note 2 - Date of Service December 24, 2018 - Glycemic Short BSG Results (Last 24 hours): 12/23/18 12/23/18 12/23/18 12:20 17:04 20:27 Glucose POC Glucose 205 H 187 H 213 H 12/24/18 12/24/18 12/24/18 05:53 07:33 07:57 Glucose 260 H POC Glucose 244 H 255 H OUTPATIENT ANTIDIABETIC REGIMEN (confirmed at bedside): * Levemir 50 units BID * Humalog CF 15mg/dL/unit, CR 1 unit per 5gm CHO, goal less than 160mg/dL * Metformin 1gm PO BID * A1c = 10.3% 12/07/18 ASSESSMENT: * Poorly controlled type 2 diabetic s/p jelani on 12/22, still hospitalized w/ post-op ileus and urinary retention * Current BSG pattern suggests primarily basal insulin deficiency as fasting BSGs above goal x 2 days while on out-pt Levemir dose * SCr elevated, patient c/o nausea, metformin currently on hold. * Will increase Levemir dose ~20% and adjust Novolog doses as well in order to bring pt's BSGs back to goal over the next 24 hrs * Additional BSG checks will be added overnight should the increased basal dose not be adequate PLAN FOR INPATIENT GLYCEMIC CONTROL: * Hold outpatient oral diabetes medications (metformin) * Basal insulin (dose increase) * Levemir 70 units x 1 this AM, then Levemir 60 units SQ BID * Bolus insulin (dose increase) * NovoLog per scale ACHS and at 00 + 04 tonight * Goal Range: Low 110 mg/dL - High 140 mg/dL * Correction Factor: 10 mg/dL/unit * Nutritional / Prandial insulin per carb ratio of 1 unit per 3 grams CHO consumed PLAN FOR DISCHARGE: * Patient's glycemic control appears to be poor based upon most recent A1c. He should be advised to f/u with PCP or Endo to have his insulin regimen adjusted. At the present time it appears that his basal insulin dose needs increased however it is difficult to make this call in the setting of acute illness.
[2018-12-24 09:27] LABS: Appearance Urine Clear (Clear); Bacteria Urine Automated Negative (Negative); Bilirubin Urine Negative (Negative); Blood Urine 3+ (Negative); Cast Urine Automated 0 /lpf (0-5); Color Urine Yellow; Epithelial Cell Urine Auto 0-5 /lpf (0-5); Glucose Urine UA 3+ (Negative); Ketones Urine Trace (Negative); Leukocyte Esterase Urine Negative (Negative); Nitrite Urine Negative (Negative); Protein Urine Negative (Negative); RBC Urine Automated >30 /hpf (0-4); Specific Gravity Urine 1.012 (1.000-1.030); Urobilinogen Urine Negative (Negative); pH Urine 6.5 (4.5-7.5)
[2018-12-24] MEDS: INSULIN ASPART 100 UNITS/ML 3 ML PEN SC SCH ×4 (09:42→20:55)
[2018-12-24] MEDS: HEPARIN SOD 5,000 UNIT/0.5 ML VIAL SQ SCH ×2 (09:47→20:56)
[2018-12-24] MEDS: MAGNESIUM HYDROXIDE SUSP 30 ML UDC PO SCH ×2 (09:57→20:41)
[2018-12-24] MEDS: AMLODIPINE BESYLATE 5 MG TAB PO SCH (09:59)
[2018-12-24] MEDS: LOSARTAN POTASSIUM 50 MG TAB PO SCH (09:59)
[2018-12-24] MEDS: DOCUSATE SODIUM/SENNA 50/8.6MG TAB PO SCH ×2 (10:00→20:40)
[2018-12-24] MEDS ORDERED: SODIUM PHOSPHATE 3 MMOL/1 ML INFUSION IV STA (10:35)
[2018-12-24] MEDS ORDERED: SODIUM PHOSPHATE 15 MMOL in SODIUM CHLORIDE 0.9% 250 ML IV ONE (11:00)
--- NOTE | 2018-12-24 14:27 | Hospitalist Progress Note ---
Date of Service December 24, 2018 Assessment & Plan (1) Status post cholecystectomy: - Recently admitted 12/06-12/10 for nausea/vomiting likely related to gallstones. - S/p lap jelani on 12/22, POD#2. - Cefoxitin 2 gm IV q8hr. - Pain control and DVT ppx per primary team. (2) Urinary retention: - Developed urinary retention post operatively; lafleur catheter placed overnight. - U/a +glucose, ketones and blood; negative for bacteria. - Urology consulted, recs pending. (3) Acute kidney injury: - Creatinine remains elevated post op, was 2.01; may be elevated in setting of urinary retention. - On IVFs at 80 cc/hr. - Continue to hold home HCTZ. (4) Ileus, postoperative: - Has not had a BM/is not passing flatus following procedure. - Clear liquid diet only. - Holding NG tube due to absence of vomiting. - Reglan scheduled q6hr. (5) Nausea: - In setting of post op ileus. - Reglan 10 mg IV q6hr scheduled with Zofran and Phenergan prn. (6) Type II diabetes mellitus: - Most recent A1C was 10.3 in Nov 2018; required insulin drip during admission in Nov. - BG has remained elevated post op. - Pharmacy consulted for glycemic management. - On Levemir 50 units BID with SSI coverage at home. - Holding home Metformin; can resume at discharge. (7) Hyperlipidemia: - Continue statin as prescribed. (8) GERD (gastroesophageal reflux disease): - Holding PPI while inpatient. (9) Hypertension: - Continue Amlodipine 10 mg qAM and Losartan 100 mg qAM; holding HCTZ in setting of IRENA. - BP has been elevated due to holding thiazide diuretic; ordered Hydralazine 10 mg IV q6hr prn. (10) Obesity: - BMI 39.2. - Encourage weight loss and exercise. (11) Electrolyte abnormality: - Phos level 2.1 -- ordered NaPhos 15 mmol IV. (12) DVT prophylaxis: - Per primary team. Dispo: Will continue to follow, please call with any questions. Supervising Physician Co-Signing Physician Notes Attending Attestation: Chart reviewed in detail, care plan d/w CHERISE Vigil. I agree w/ the arnold components of her documentation. In addition to IRENA and urinary retention the pt has an ileus. Cont to provide supportive care for all 3 issues. Shahid Kerr MD Subjective Pt. has increased nausea, denies vomiting. On Reglan scheduled q6hr. Has not been passing gas or had a BM since admission, concern for post op ileus. Will continue to monitor. Had urinary retention, lafleur was placed last evening. Urology consult is pending. Denies chest pain, SOB. Review of Systems All systems reviewed & are unremarkable except as noted in HPI & below Constitutional: no fever, no chills, no fatigue, no weakness and no anorexia Respiratory: no cough, no dyspnea and no wheezing Cardiovascular: no chest pain, no palpitations, no lightheadedness and no edema Gastrointestinal: + abdominal pain, + bloating, + nausea and + constipation; no vomiting and no diarrhea/loose stools Genitourinary (Male): + difficulty urinating and + decreased urination Musculoskeletal: no joint pain Allergy / Immunological: no rash Physical Exam Vital Signs (Past 24 Hours): Last Vital Signs Temp 37.0 C 12/24/18 11:43 Pulse 98 H 12/24/18 11:43 Resp 20 12/24/18 11:43 BP 150/103 H 12/24/18 11:43 Pulse Ox 96 12/24/18 11:43 Physical Exam: General: Resting comfortably in no apparent distress; A&OX3 HEENT: NC/AT; PERRLA with EOMI; Volo conjunctiva, MMM. Neck: Supple and nontender Cardiac: RRR Lungs: CTA bilaterally Abdomen: Incision sites with dressing in place; Distended abdomen; Hypoactive BS x 4; tenderness to light palpation. : Lafleur with clear yellow output. Extremities: Warm. No edema present Neuro: No focal weakness Skin: No rash Results & Data Laboratory Results 12/24/18 12/24/18 12/24/18 Range/Units 11:56 09:15 07:57 WBC (4.8-10.8) K/uL RBC (4.7-6.1) M/uL Hgb (14.0-18.0) g/dL Hct (42-52) % MCV (80-100) fL MCH (25-34) pg MCHC (32-36) g/dL RDW Std Deviation (36.4-46.3) fL RDW Coeff of Estela (11.5-14.5) % Plt Count (130-400) K/uL MPV (7.4-10.4) fL Sodium (136-145) mmol/L Potassium (3.5-5.1) mmol/L Chloride (98-107) mmol/L Carbon Dioxide (21-32) mmol/L Anion Gap (3-11) BUN (7-18) mg/dl Creatinine (0.6-1.4) mg/dl Est Cr Clr Drug Dosing ml/min Est GFR ( Amer) Est GFR (Non-Af Amer) BUN/Creatinine Ratio (10-20) Glucose (70-99) mg/dl POC Glucose 228 H 255 H (70-99) Calcium (8.5-10.1) mg/dl Phosphorus (2.5-4.9) mg/dl Magnesium (1.8-2.4) mg/dl Urine Color Yellow Urine Appearance Clear (Clear) Urine pH 6.5 (4.5-7.5) Ur Specific Ceylon 1.012 (1.000-1.030) Urine Protein Negative (Negative) Urine Glucose (UA) 3+ H (Negative) Urine Ketones Trace H (Negative) Urine Blood 3+ H (Negative) Urine Nitrite Negative (Negative) Urine Bilirubin Negative (Negative) Urine Urobilinogen Negative (Negative) Ur Leukocyte Esterase Negative (Negative) Urine WBC (Auto) 1-5 (0-5) /hpf Urine RBC (Auto) >30 H (0-4) /hpf U Hyaline Cast (Auto) 0 (0-5) /lpf U Epithel Cells (Auto) 0-5 (0-5) /lpf Urine Bacteria (Auto) Negative (Negative) 12/24/18 12/24/18 12/24/18 Range/Units 07:33 07:33 05:53 WBC 7.52 (4.8-10.8) K/uL RBC 4.64 L (4.7-6.1) M/uL Hgb 10.1 L (14.0-18.0) g/dL Hct 33.2 L (42-52) % MCV 71.6 L (80-100) fL MCH 21.8 L (25-34) pg MCHC 30.4 L (32-36) g/dL RDW Std Deviation 46.0 (36.4-46.3) fL RDW Coeff of Estela 17.8 H (11.5-14.5) % Plt Count 290 (130-400) K/uL MPV 9.3 (7.4-10.4) fL Sodium 137 (136-145) mmol/L Potassium 4.3 (3.5-5.1) mmol/L Chloride 105 (98-107) mmol/L Carbon Dioxide 25 (21-32) mmol/L Anion Gap 7.0 (3-11) BUN 20 H (7-18) mg/dl Creatinine 2.01 H (0.6-1.4) mg/dl Est Cr Clr Drug Dosing 41.0 ml/min Est GFR ( Amer) 38.4 Est GFR (Non-Af Amer) 33.1 BUN/Creatinine Ratio 10.0 (10-20) Glucose 260 H (70-99) mg/dl POC Glucose 244 H (70-99) Calcium 8.6 (8.5-10.1) mg/dl Phosphorus 2.2 L (2.5-4.9) mg/dl Magnesium 2.8 H (1.8-2.4) mg/dl Urine Color Urine Appearance (Clear) Urine pH (4.5-7.5) Ur Specific Ceylon (1.000-1.030) Urine Protein (Negative) Urine Glucose (UA) (Negative) Urine Ketones (Negative) Urine Blood (Negative) Urine Nitrite (Negative) Urine Bilirubin (Negative) Urine Urobilinogen (Negative) Ur Leukocyte Esterase (Negative) Urine WBC (Auto) (0-5) /hpf Urine RBC (Auto) (0-4) /hpf U Hyaline Cast (Auto) (0-5) /lpf U Epithel Cells (Auto) (0-5) /lpf Urine Bacteria (Auto) (Negative) 12/23/18 12/23/18 Range/Units 20:27 17:04 WBC (4.8-10.8) K/uL RBC (4.7-6.1) M/uL Hgb (14.0-18.0) g/dL Hct (42-52) % MCV (80-100) fL MCH (25-34) pg MCHC (32-36) g/dL RDW Std Deviation (36.4-46.3) fL RDW Coeff of Estela (11.5-14.5) % Plt Count (130-400) K/uL MPV (7.4-10.4) fL Sodium (136-145) mmol/L Potassium (3.5-5.1) mmol/L Chloride (98-107) mmol/L Carbon Dioxide (21-32) mmol/L Anion Gap (3-11) BUN (7-18) mg/dl Creatinine (0.6-1.4) mg/dl Est Cr Clr Drug Dosing ml/min Est GFR ( Amer) Est GFR (Non-Af Amer) BUN/Creatinine Ratio (10-20) Glucose (70-99) mg/dl POC Glucose 213 H 187 H (70-99) Calcium (8.5-10.1) mg/dl Phosphorus (2.5-4.9) mg/dl Magnesium (1.8-2.4) mg/dl Urine Color Urine Appearance (Clear) Urine pH (4.5-7.5) Ur Specific Ceylon (1.000-1.030) Urine Protein (Negative) Urine Glucose (UA) (Negative) Urine Ketones (Negative) Urine Blood (Negative) Urine Nitrite (Negative) Urine Bilirubin (Negative) Urine Urobilinogen (Negative) Ur Leukocyte Esterase (Negative) Urine WBC (Auto) (0-5) /hpf Urine RBC (Auto) (0-4) /hpf U Hyaline Cast (Auto) (0-5) /lpf U Epithel Cells (Auto) (0-5) /lpf Urine Bacteria (Auto) (Negative)
--- NOTE | 2018-12-24 15:32 | Urology Consultation ---
Date of Consultation December 24, 2018 Assessment & Plan (1) Postoperative urinary retention: Will plan to keep Boston catheter in place for 7-10 days. Will initiate Tamsulosin QHS - use and side effects reviewed. Will coordinate outpatient trial of void and follow up. Basic Boston care reviewed - nursing please review again with patient before discharge. Thank you for allowing us to participate in the care of this patient. Please contact our service with any additional questions/concerns. History of Present Illness Attending Physician: Jaxon Francisco MD, FACS History of Present Illness 68 YO male s/p lap jelani with urinary retention. Patient reports that he was able to void post anesthesia, however developed difficulty overnight and a Boston was inserted. Today, catheter is not bothersome. Patient reports that his pain is under control. Denies fever/chills. Denies nausea/vomiting. Patient reports that his baseline urinary pattern is not bothersome. Does not take any medications for urination. He saw a urologist ~10years ago for kidney stone. He has never had a catheter. Allergies Allergy/AdvReac Type Severity Reaction Status Date / Time No Known Allergies Allergy Verified 12/18/18 09:34 Home Medications Home Medications Medication Instructions Recorded Confirmed Type Prilosec OTC 20 mg PO QAM 12/06/18 12/18/18 History amlodipine 10 mg PO QAM 12/06/18 12/22/18 History aspirin 81 mg PO QAM 12/06/18 12/22/18 History cyanocobalamin (vitamin B-12) 1,000 mcg PO QAM 12/06/18 12/22/18 History [Vitamin B-12] hydrochlorothiazide 25 mg PO QAM 12/06/18 12/22/18 History metformin 1,000 mg PO Q12H 12/06/18 12/18/18 History pravastatin 40 mg PO HS 12/06/18 12/18/18 History insulin detemir U-100 [Levemir 50 unit SUBCUT BID 12/15/18 12/22/18 History FlexTouch U-100 Insuln] insulin lispro [Humalog KwikPen 1 dose SUBCUT UD 12/15/18 12/22/18 History Insulin] losartan 100 mg PO QAM 12/15/18 12/22/18 History ondansetron HCl [Zofran] 4 mg PO Q6H PRN #20 tab 12/16/18 12/18/18 Rx Patient History Medical History Cancer SKIN ON FACE Diabetes mellitus, type 2 Kidney stones Amebic hepatitis PT DENIES Dyslipidemia GERD (gastroesophageal reflux disease) Hypertension Obesity Surgical History History of anesthesia reaction DIFFICULTY BREATHING AFTER ANESTHESIA/HICCUPS AFTER SURGERY History of colonoscopy History of cystoscopy STONE REMOVAL History of esophagogastroduodenoscopy (EGD) Hx of oral surgery GROWTH REMOVED FROM INSIDE OF MOUTH (BENIGN) Family History Unknown No problems noted. Mother Diabetes Social History Communication Ability: Effective Beliefs That Will Affect Care: None marital status: Current Living Situation: Spouse Other Information That Helps Us Care for You: No Feels Safe at Home: Yes Safety Concerns: Feels Safe At This Time Smoking Status: Never smoker Hx Alcohol Use: No Hx Substance Use: No Review of Systems Constitutional: no fever and no chills Eyes: no problem reported Ear, Nose, Mouth, Throat: no problem reported Respiratory: no dyspnea Cardiovascular: no chest pain Gastrointestinal: no abdominal pain Genitourinary (Male): + difficulty urinating; no hematuria Musculoskeletal: no back pain Integumentary: no problem reported Neurologic: no tingling and no numbness Physical Exam Vital Signs (Past 24 Hours): Last Vital Signs Temp 37.0 C 12/24/18 11:43 Pulse 98 H 12/24/18 11:43 Resp 20 12/24/18 11:43 BP 150/103 H 12/24/18 11:43 Pulse Ox 96 12/24/18 11:43 Constitutional: WD/WN, vitals as above + overweight Neck: normal visual inspection Respiratory: normal respiratory effort; does not use accessory muscles Cardiovascular: Vessels: no JVD Psychiatric: A+Ox3, euthymic affect Genitourinary: Boston cath in place, patent, draining yellow urine.
[2018-12-24 17:37] LABS: BUN Creatinine Ratio 9.2 (10-20); Calcium 8.2 mg/dl (8.5-10.1); Creatinine Clr Calc Pharmacy 42.9 ml/min; Est GFR (African American) 40.6; Potassium 3.7 mmol/L (3.5-5.1)
[2018-12-24] MEDS: PRAVASTATIN SOD 40 MG TAB PO SCH (20:41)
[2018-12-24] MEDS ORDERED: TAMSULOSIN HCL 0.4 MG CAP PO SCH (21:00)
[2018-12-25] MEDS: METOCLOPRAMIDE HCL INJ 5 MG/ML 2 ML VIAL IV SCH ×3 (00:10→13:12)
[2018-12-25] MEDS: INSULIN ASPART 100 UNITS/ML 3 ML PEN SC SCH ×4 (00:55→12:54)
[2018-12-25] MEDS: cefOXitin 2,000 MG in DEXTROSE 5% 50 ML IV SCH ×2 (05:07→13:33)
[2018-12-25 05:47] LABS: Hemoglobin 9.6 g/dL (14.0-18.0); Mean Corpuscular Volume 71.9 fL (80-100); Platelet Count 271 K/uL (130-400); RDW Coefficient of Variation 18.3 % (11.5-14.5); RDW Standard Deviation 47.8 fL (36.4-46.3); Red Blood Count 4.45 M/uL (4.7-6.1); White Blood Count 5.59 K/uL (4.8-10.8)
[2018-12-25 07:02] LABS: Albumin Globulin Ratio 0.7 (0.9-2); Albumin Level 2.7 gm/dl (3.4-5.0); BUN Creatinine Ratio 9.2 (10-20); Bilirubin Direct 1.3 mg/dl (0-0.2); Bilirubin,Total 1.8 mg/dl (0.2-1); Calcium 8.2 mg/dl (8.5-10.1); Creatinine Clr Calc Pharmacy 48.2 ml/min; Est GFR (African American) 46.6; Est GFR (Non-African American) 40.2; Globulin 3.8 gm/dl (2.5-4.0); Magnesium 2.7 mg/dl (1.8-2.4); Potassium 3.8 mmol/L (3.5-5.1); Total Protein 6.5 gm/dl (6.4-8.2)
[2018-12-25] MEDS ORDERED: BISACODYL 10 MG SUPP PR STA (07:32)
--- NOTE | 2018-12-25 07:37 | Progress Note ---
Date of Service December 25, 2018 Assessment & Plan (1) Status post cholecystectomy: overall looks better- no bm- try suppository, elevated LFTs- ? leak (drain nonbilious) ? sludge/ stone in duct- check Hida ask GI to help- prob will need to stay today Subjective slept well overnight- some flatus- no bm slight nausea dr- serous- nonbilious elevated LFTs today Physical Exam Vital Signs (Past 24 Hours): Last Vital Signs Temp 36.4 C L 12/24/18 23:03 Pulse 88 12/24/18 23:03 Resp 18 12/24/18 23:03 BP 129/68 12/24/18 23:03 Pulse Ox 94 12/24/18 23:03 awake, alert- has bowel sounds, drain - clear , serous
[2018-12-25] MEDS ORDERED: INSULIN DETEMIR FLEXPEN/FLEX TOUCH 100 UNITS/ML 3ML SC SCH ×2 (09:00→16:30)
--- NOTE | 2018-12-25 09:02 | Pharmacy Report ---
Pharmacy Glycemic Short Note 2 - Date of Service December 25, 2018 - Glycemic Short BSG Results (Last 24 hours): 12/24/18 12/24/18 12/24/18 11:56 17:11 17:49 Glucose 116 H POC Glucose 228 H 94 12/24/18 12/25/18 12/25/18 20:48 00:06 04:33 Glucose POC Glucose 113 H 96 106 H 12/25/18 05:17 Glucose 98 POC Glucose OUTPATIENT ANTIDIABETIC REGIMEN (confirmed at bedside): * Levemir 50 units BID * Humalog CF 15mg/dL/unit, CR 1 unit per 5gm CHO, goal less than 160mg/dL * Metformin 1gm PO BID * A1c = 10.3% 12/07/18 ASSESSMENT: * Poorly controlled type 2 diabetic per recent A1c. Pt s/p jelani on 12/22, still hospitalized w/ post-op ileus and urinary retention * Pt has received 175 units of insulin over the past 24hrs * 130 units of basal insulin * 45 units of prandial/correctional insulin * Regimen weighted towards basal insulin d/t poor PO intake/clear liquid diet. * AM fasting BSG is slightly below goal range for inpatient targets at 98 mg/dl --> current basal insulin dosing is slightly higher than outpatient dosing. Will reduce AM dose of Levemir x 1 and then resume 60 units SQ BID * BSGs trend downward throughout the day and after meals. Bolus insulin likely adequate for now but may need tightened once PO intake advances. * Goal is to maintain BSGs <200 mg/dl (ideally <150 mg/dl) to prevent post-op infectious complications PLAN FOR INPATIENT GLYCEMIC CONTROL: * Hold outpatient oral diabetes medications (metformin) * Basal insulin (dose decrease) * Levemir 50 units x 1 this AM, then Levemir 60 units SQ BID * Bolus insulin (no change) * NovoLog per scale ACHS * Goal Range: Low 110 mg/dL - High 140 mg/dL * Correction Factor: 10 mg/dL/unit * Nutritional / Prandial insulin per carb ratio of 1 unit per 3 grams CHO consumed PLAN FOR DISCHARGE: * Patient's glycemic control appears to be poor based upon most recent A1c. He should be advised to f/u with PCP or Endo to have his insulin regimen adjusted. At the present time it appears that his basal insulin dose needs increased however it is difficult to make this call in the setting of acute illness.
--- NOTE | 2018-12-25 09:18 | Nuclear Medicine Report ---
NUCLEAR MEDICINE HEPATOBILIARY SCAN CLINICAL HISTORY: assess for bile leak COMPARISON STUDY: CT of the abdomen and pelvis December 15, 2018. TECHNIQUE: 5.3 mCi of technetium 99m Choletec was injected IV at 8:15 AM on December 25, 2018. Imaging o f the abdomen was carried out for 45 minutes in the anterior projection. FINDINGS: Expected hepatic uptake of radiotracer is noted. There is excretion into the common bile du ct and small bowel at 10 minutes. There is no accumulation of radiotracer within the cholecystectomy bed or the remainder of the peritoneal cavity. IMPRESSION: No evidence of a bile leak. Electronically signed by: Bacilio Lovell M.D. 12/25/2018 9:17 AM
[2018-12-25] MEDS: LOSARTAN POTASSIUM 50 MG TAB PO SCH (09:27)
[2018-12-25] MEDS: AMLODIPINE BESYLATE 5 MG TAB PO SCH (09:28)
[2018-12-25] MEDS: DOCUSATE SODIUM/SENNA 50/8.6MG TAB PO SCH (09:29)
--- NOTE | 2018-12-25 09:34 | Gastrointestinal Consultation ---
Date of Consultation December 25, 2018 Assessment & Plan (1) Status post cholecystectomy: Mr. Murphy is a 68 yr old male who is slowly recovering from lap choley. LFTs are elevated, but w/o evidence of bile leak. (2) Elevated transaminase level: or of choledocholithiasis and pt's symptoms are not typical of biliary obstruction at this time. LFTs are also in a pattern of hepatocellular injury vs. obstruction. Suspect LFTs are from fatty liver disease with worsening with surgery though these should be followed and if persist then MRCP could be ordered to verify no choledocholithiasis. Should f/u with OP GI if elevated LFTs persist (w/o evidence of choledocholithiasis). Supervising Physician Co-Signing Physician Notes I have personally seen and examined the patient with BECCA Beach. Her note reflects my exam and findings. I agree with her impression and plan. No leak noted on HIDA. Patient feels better after BM. Ricardo Kelley M.D. History of Present Illness Reason for Consultation: Elevated LFTs Requesting Physician: Dr. Francisco Attending Physician: Jaxon Francisco MD, [facility] History of Present Illness Mr. Ronak Murphy is a 68 yr old male pt with a hx of GERD, DM, obesity, HTN and amebic hepatitis who presented to [facility] on 12/06 for nausea, vomiting, diarrhea, abdominal pain. He underwent lap choley with lysis of adhesions by by Dr. Francisco on12/15 for chronic cholecystitis. Today, he has mildly elevated LFTs (T Bili 1.8, D Bili 1.3 AST 499, ALT 526, Alk Phos 342). LFTs were normal on arrival and AST at 42 on 12/23 but otherwise, LFTs have been normal including an ED visit a month prior for similar symptoms. He had a CT with IV contrast on 12/15/18 w/o mention of liver or bile duct abnormalities as well [facility]. HIDA scan today is w/o bile leak. Allergies Allergy/AdvReac Type Severity Reaction Status Date / Time No Known Allergies Allergy Verified 12/18/18 09:34 Home Medications Home Medications Medication Instructions Recorded Confirmed Type Prilosec OTC 20 mg PO QAM 12/06/18 12/18/18 History amlodipine 10 mg PO QAM 12/06/18 12/22/18 History aspirin 81 mg PO QAM 12/06/18 12/22/18 History cyanocobalamin (vitamin B-12) 1,000 mcg PO QAM 12/06/18 12/22/18 History [Vitamin B-12] hydrochlorothiazide 25 mg PO QAM 12/06/18 12/22/18 History metformin 1,000 mg PO Q12H 12/06/18 12/18/18 History pravastatin 40 mg PO HS 12/06/18 12/18/18 History insulin detemir U-100 [Levemir 50 unit SUBCUT BID 12/15/18 12/22/18 History FlexTouch U-100 Insuln] insulin lispro [Humalog KwikPen 1 dose SUBCUT UD 12/15/18 12/22/18 History Insulin] losartan 100 mg PO QAM 12/15/18 12/22/18 History ondansetron HCl [Zofran] 4 mg PO Q6H PRN #20 tab 12/16/18 12/18/18 Rx amoxicillin-pot clavulanate 1 tab PO BID #10 tab 12/25/18 Rx [Augmentin] hydrocodone-acetaminophen [[place]] 1 - 2 tab PO Q6H #30 tab 12/25/18 Rx ondansetron HCl [Zofran] 4 mg PO Q6H PRN #10 tab 12/25/18 Rx Patient History Medical History Cancer SKIN ON FACE Diabetes mellitus, type 2 Kidney stones Amebic hepatitis PT DENIES Dyslipidemia GERD (gastroesophageal reflux disease) Hypertension Obesity Surgical History History of anesthesia reaction DIFFICULTY BREATHING AFTER ANESTHESIA/HICCUPS AFTER SURGERY History of colonoscopy History of cystoscopy STONE REMOVAL History of esophagogastroduodenoscopy (EGD) Hx of oral surgery GROWTH REMOVED FROM INSIDE OF MOUTH (BENIGN) Family History Unknown No problems noted. Mother Diabetes Social History Communication Ability: Effective Beliefs That Will Affect Care: None marital status: Current Living Situation: Spouse Other Information That Helps Us Care for You: No Feels Safe at Home: Yes Safety Concerns: Feels Safe At This Time Smoking Status: Never smoker Hx Alcohol Use: No Hx Substance Use: No Review of Systems Gen: Denies fever, weakness, weight loss. Eyes: no vision changes, no eye redness or pain Respiratory: No SOB, no cough Cardiovascular: No irregular heartbeats or chest pain Abdomen: See HPI Ext: No edema Hem: No excessive bruising/bleeding Physical Exam Vital Signs (Past 24 Hours): Last Vital Signs Temp 36.8 C 12/25/18 07:30 Pulse 105 H 12/25/18 07:30 Resp 20 12/25/18 07:30 BP 157/87 H 12/25/18 07:30 Pulse Ox 97 12/25/18 07:30 Constitutional: WD/WN, vitals as above well developed, well nourished and + obese; no acute distress Eyes: PERRL, conjunctivae normal, anicteric sclerae ENMT: external ear and nose normal, oropharynx normal Neck: trachea midline, no thyromegaly Respiratory: normal respiratory effort, lungs clear to auscultation Cardiovascular: RRR, no murmur, no edema Gastrointestinal (Abdomen): Inspection/Auscultation: + abdomen distended (mildly, not rigid) and + abdominal surgical scar (dressing intact w/o drainage/bleeding) Percussion/Palpation: + abdomen tender (near incisions and generally in the RUQ) and abdomen soft; no guarding and abdomen not rigid YESSENIA drain in place, draining pink serous liquid, no visible bile in the drain Musculoskeletal: able to ambulate in the room Skin: no rashes, warm and dry Neurologic: PERRL, EOMI, accommodation nl, no face palsy, no dysarthria Psychiatric: A+Ox3, euthymic affect Lymphatic: no cervical or axillary lymphadenopathy Results & Data Laboratory Results T Bili 1.9, D Bili 1.3, AST 499, ALT 26, ALk Aravind 342 Diagnostic Findings HIDA 12/25: no bile leak CT with IV contrast 12/25: 1. No acute process the abdomen or pelvis. 2. Stable hepatic and renal cysts. 3. Nonobstructive bowel pattern. 4. Prostate enlargement.
[2018-12-25] MEDS: HEPARIN SOD 5,000 UNIT/0.5 ML VIAL SQ SCH (09:43)
[2018-12-25] MEDS: ONDANSETRON INJ 2 MG/ML 2 ML VIAL IV PRN (09:46)
[2018-12-25] MEDS: MAGNESIUM HYDROXIDE SUSP 30 ML UDC PO SCH (10:36)
[2018-12-25] MEDS: SODIUM CHLORIDE 0.9% 1000ML 1,000 ML IV SCH (12:27)
--- NOTE | 2018-12-25 18:19 | Hospitalist Progress Note ---
Date of Service December 25, 2018 Assessment & Plan (1) Status post cholecystectomy: - Recently admitted 12/06-12/10 for nausea/vomiting likely related to gallstones. - S/p lap jelani on 12/22, POD #3. - Pain control and DVT ppx per primary team. - Discharged to home today, will f/u with surgery. (2) Elevated LFTs: - Acute elevation in LFTs this morning. - HIDA scan was negative. - GI consulted, suspect LFTs are from fatty liver disease in setting of surgery. - Will need to be followed as outpatient -- will need MRCP if no improvement in LFTs. - Should follow up with GI. -will have repeat labs done with Dr. Francisco as outpt in follow up (3) Urinary retention: - Developed urinary retention post operatively. - U/a +glucose, ketones and blood; negative for bacteria. - Urology consulted, will maintain lafleur catheter for 7-10 days and follow up for voiding trial. - Continue Flomax 0.4 mg qhs. (4) Iron deficiency anemia: - Microcytic anemia on lab work. - Recommend repeat iron studies as outpatient. - Will need to follow up with PCP for lab work/GI work up if not completed recently. (5) Acute kidney injury: - Creatinine peaked at 2.01, likely related to urinary retention. - Trended down overall - resume HCTZ at discharge. (6) Ileus, postoperative: - Had large BMs this morning, now resolved. (7) Nausea: - In setting of post op ileus. - Reglan & Zofran. (8) Type II diabetes mellitus: - Most recent A1C was 10.3 in Nov 2018; required insulin drip during admission in Nov. - Pharmacy was consulted for glycemic management. - Resume home insulin regimen (Levemir 50 BID with SSI coverage CF 15 and 1 to 5 carb ratio) at discharge. (9) Hyperlipidemia: - hold statin until LFTs back to normal-pt was contacted after discharge to inform him of this recommendation - Will need to monitor LFTs as outpatient. (10) GERD (gastroesophageal reflux disease): - Held PPI while inpatient. (11) Hypertension: - Continue Amlodipine 10 mg qAM and Losartan 100 mg qAM; resumed home HCTZ at discharge. (12) Obesity: - BMI 39.2. - Encourage weight loss and exercise. (13) Fatty liver: - Recommend weight loss and exercise. (14) Electrolyte abnormality: - Replace as needed. (15) DVT prophylaxis: - Per primary team. Dispo: Pt. was discharged to home this afternoon. Supervising Physician Co-Signing Physician Notes PA Supervision Note: I did not personally see or examine the patient today, but I verified all arnold points of CHERISE Riley's assessment and plan with the following exceptions/additions: None Subjective Pt. was doing well overall today. He has mild right sided abdominal pain. Had multiple large BMs this morning. Mild nausea, no vomiting. He was discharged to home today. Review of Systems All systems reviewed & are unremarkable except as noted in HPI & below Constitutional: no fever, no chills, no fatigue, no weakness and no anorexia Respiratory: no cough and no dyspnea Cardiovascular: no chest pain, no palpitations and no edema Gastrointestinal: + abdominal pain and + nausea; no vomiting, no constipation and no diarrhea/loose stools Genitourinary (Male): + difficulty urinating Musculoskeletal: no joint pain Allergy / Immunological: no rash Physical Exam Vital Signs (Past 24 Hours): Last Vital Signs Temp 36.8 C 12/25/18 15:46 Pulse 88 12/25/18 15:46 Resp 20 12/25/18 15:46 BP 166/81 H 12/25/18 15:46 Pulse Ox 97 12/25/18 15:46 Physical Exam: General: Resting comfortably in no apparent distress; A&OX3 HEENT: NC/AT; PERRLA with EOMI; [place] conjunctiva, MMM. Neck: Supple and nontender Cardiac: RRR Lungs: CTA bilaterally Abdomen: Incision sites with dressing in place; Normoactive BS x 4; Nontender to light palpation. : [place] with clear yellow output. Extremities: Warm. No edema present Neuro: No focal weakness Skin: No rash Results & Data Laboratory Results 12/25/18 12/25/18 12/25/18 Range/Units 12:01 09:14 05:17 WBC (4.8-10.8) K/uL RBC (4.7-6.1) M/uL Hgb (14.0-18.0) g/dL Hct (42-52) % MCV (80-100) fL MCH (25-34) pg MCHC (32-36) g/dL RDW Std Deviation (36.4-46.3) fL RDW Coeff of Estela (11.5-14.5) % Plt Count (130-400) K/uL MPV (7.4-10.4) fL Sodium 142 (136-145) mmol/L Potassium 3.8 (3.5-5.1) mmol/L Chloride 109 H (98-107) mmol/L Carbon Dioxide 27 (21-32) mmol/L Anion Gap 6.0 (3-11) BUN 16 (7-18) mg/dl Creatinine 1.71 H (0.6-1.4) mg/dl Est Cr Clr Drug Dosing 48.2 ml/min Est GFR ( Amer) 46.6 Est GFR (Non-Af Amer) 40.2 BUN/Creatinine Ratio 9.2 L (10-20) Glucose 98 (70-99) mg/dl POC Glucose 180 H 135 H (70-99) Calcium 8.2 L (8.5-10.1) mg/dl Phosphorus 3.0 (2.5-4.9) mg/dl Magnesium 2.7 H (1.8-2.4) mg/dl Total Bilirubin 1.8 H D (0.2-1) mg/dl Direct Bilirubin 1.3 H D (0-0.2) mg/dl AST 499 H (15-37) U/L ALT 526 H (12-78) U/L Alkaline Phosphatase 342 H D (45-117) U/L Total Protein 6.5 (6.4-8.2) gm/dl Albumin 2.7 L (3.4-5.0) gm/dl Globulin 3.8 (2.5-4.0) gm/dl Albumin/Globulin Ratio 0.7 L (0.9-2) 12/25/18 12/25/18 12/25/18 Range/Units 05:17 04:33 00:06 WBC 5.59 (4.8-10.8) K/uL RBC 4.45 L (4.7-6.1) M/uL Hgb 9.6 L (14.0-18.0) g/dL Hct 32.0 L (42-52) % MCV 71.9 L (80-100) fL MCH 21.6 L (25-34) pg MCHC 30.0 L (32-36) g/dL RDW Std Deviation 47.8 H (36.4-46.3) fL RDW Coeff of [place]ela 18.3 H (11.5-14.5) % Plt Count 271 (130-400) K/uL MPV 9.0 (7.4-10.4) fL Sodium (136-145) mmol/L Potassium (3.5-5.1) mmol/L Chloride (98-107) mmol/L Carbon Dioxide (21-32) mmol/L Anion Gap (3-11) BUN (7-18) mg/dl Creatinine (0.6-1.4) mg/dl Est Cr Clr Drug Dosing ml/min Est GFR ( Amer) Est GFR (Non-Af Amer) BUN/Creatinine Ratio (10-20) Glucose (70-99) mg/dl POC Glucose 106 H 96 (70-99) Calcium (8.5-10.1) mg/dl Phosphorus (2.5-4.9) mg/dl Magnesium (1.8-2.4) mg/dl Total Bilirubin (0.2-1) mg/dl Direct Bilirubin (0-0.2) mg/dl AST (15-37) U/L ALT (12-78) U/L Alkaline Phosphatase (45-117) U/L Total Protein (6.4-8.2) gm/dl Albumin (3.4-5.0) gm/dl Globulin (2.5-4.0) gm/dl Albumin/Globulin Ratio (0.9-2) 12/24/18 Range/Units 20:48 WBC (4.8-10.8) K/uL RBC (4.7-6.1) M/uL Hgb (14.0-18.0) g/dL Hct (42-52) % MCV (80-100) fL MCH (25-34) pg MCHC (32-36) g/dL RDW Std Deviation (36.4-46.3) fL RDW Coeff of [place]ela (11.5-14.5) % Plt Count (130-400) K/uL MPV (7.4-10.4) fL Sodium (136-145) mmol/L Potassium (3.5-5.1) mmol/L Chloride (98-107) mmol/L Carbon Dioxide (21-32) mmol/L Anion Gap (3-11) BUN (7-18) mg/dl Creatinine (0.6-1.4) mg/dl Est Cr Clr Drug Dosing ml/min Est GFR ( Amer) Est GFR (Non-Af Amer) BUN/Creatinine Ratio (10-20) Glucose (70-99) mg/dl POC Glucose 113 H (70-99) Calcium (8.5-10.1) mg/dl Phosphorus (2.5-4.9) mg/dl Magnesium (1.8-2.4) mg/dl Total Bilirubin (0.2-1) mg/dl Direct Bilirubin (0-0.2) mg/dl AST (15-37) U/L ALT (12-78) U/L Alkaline Phosphatase (45-117) U/L Total Protein (6.4-8.2) gm/dl Albumin (3.4-5.0) gm/dl Globulin (2.5-4.0) gm/dl Albumin/Globulin Ratio (0.9-2)
--- NOTE | 2018-12-27 11:39 | Discharge Summary ---
Date of Service December 30, 2018 Discharge Data Consultations 12/22/18 16:28 Consult Case Management - Discharge Planning Routine Consult Hospitalist Routine 12/24/18 06:07 Consult Urology Routine 12/25/18 07:44 Consult Gastroenterology Routine Procedures Performed Operation Date: 12/22/18 13:20 Actual Procedures p Laparoscopic Cholecystectomy(Not Applicable) - Jaxon Francisco MD, FACS
--- NOTE | 2018-12-28 14:04 | Discharge Summary ---
PRIMARY DISCHARGE DIAGNOSES: 1. Chronic cholecystitis. 2. Postoperative urinary retention. 3. Acute kidney injury. 4. Microcytic anemia. 5. Elevated LFTs postoperatively. SECONDARY DISCHARGE DIAGNOSES: 1. Type 2 diabetes. 2. Hyperlipidemia. 3. Gastroesophageal reflux disease. 4. Hypertension. 5. Obesity. PROCEDURE PERFORMED: Laparoscopic cholecystectomy. CONSULTATIONS: 1. [facility] hospitalist to assist in postoperative medical management. 2. [facility] gastroenterology for elevated LFTs. 3. [facility] urology for urinary retention. HOSPITAL COURSE: The patient is a 68-year-old male taken to the operating room for elective laparoscopic cholecystectomy. The procedure was well tolerated. He was transferred to the surgical floor for overnight observation given his multiple medical problems. IV antibiotics were continued. He had slow progress over the first 24 hours. On postoperative day 2, [place] catheter was placed for urinary retention. He was started on Flomax. He continued to have some nausea, was slow to advance diet. On day 3, he had some LFT elevations. GI was consulted, attributed these findings to fatty liver disease in the setting of recent surgery. No further evaluation was recommended. He did have a HIDA scan which was negative. He began moving his bowels and began feeling better. He wass able to advance diet. He was tolerating oral analgesics. YESSENIA drainage was nonbilious. He was stable for discharge later in the day POD 3. DISCHARGE INSTRUCTIONS: Discharge home. Follow up with Dr. Francisco in approximately 1 week. He will follow up with urology in 7-10 days for removal of [place] catheter. Follow up with GI for his LFT elevations and should follow up with his PCP for microcytic anemia. His preoperative hemoglobin was 12, postoperative was 10. DISCHARGE MEDICATIONS: [place] 1-2 tablets every 6 hours as needed, Zofran 4 mg every 6 hours as needed, Augmentin 1 tablet p.o. b.i.d. Continue home medications, amlodipine 10 mg daily, aspirin 81 mg daily, vitamin B12 1000 mcg daily, Humalog KwikPen, hydrochlorothiazide 25 mg daily, Levemir 50 units b.i.d., losartan 100 mg daily, metformin 1000 mg b.i.d., Zofran 4 mg as needed, pravastatin 40 mg at bedtime, Prilosec 20 mg daily. [facility]
== END 2018-12-25 16:47 | disposition home or self-care (01) | DRG 418 ==
LOC: ASU 11:06 → 3W 14:38